=== PATIENT | female | born 1950 | race Caucasian/White ===

== ENCOUNTER 2023-04-19 09:24 | Outpatient (OUT) | payer MEDICARE, MEDICAID, SELFPAY ==
[2023-04-19 09:56] LABS: Basophils Absolute Auto 0.1 10^3/uL (0.0-0.1); Basophils Percent Auto 1.4 % (0.2-2.0); Eosinophils Absolute Auto 0.1 10^3/uL (0.0-0.7); Hematocrit 40.5 % (36.0-48.0); Hemoglobin 13.7 g/dL (12.0-16.0); Immature Granulocytes Abs Auto 0.01 10^3/uL (0.00-0.03); Immature Granulocytes Pct Auto 0.2 % (0.0-0.5); Lymphocytes Absolute Auto 1.4 10^3/uL (1.2-3.8); Lymphocytes Percent Auto 27.5 % (20.5-60.0); Mean Corpuscular HGB Conc 33.8 g/dL (29.9-35.2); Mean Corpuscular Hemoglobin 29.5 pg (26.7-34.0); Mean Corpuscular Volume 87.3 fL (81.0-99.0); Mean Platelet Volume 10.4 fL (9.5-13.5); Monocytes Absolute Auto 0.5 10^3/uL (0.3-0.8); Monocytes Percent Auto 10.4 % (1.7-12.0); Neutrophils Absolute Auto 2.9 10^3/uL (1.4-6.5); Neutrophils Percent Auto 58.5 % (43.0-75.0); Platelet Count 212 10^3/uL (150-450); Red Blood Count 4.64 10^6/uL (4.20-5.40); Red Cell Distribution Width 14.2 % (11.0-15.0)
[2023-04-19 10:44] LABS: Alanine Aminotransferase 23 U/L (14-59); Albumin Globulin Ratio 1.1; Albumin Level 3.7 g/dL (3.4-5.0); Alkaline Phosphatase 64 U/L (46-116); Anion Gap 10.3; Aspartate Amino Transferase 23 U/L (15-37); BUN Creatinine Ratio 18.1; Bilirubin Direct 0.2 mg/dL (0.0-0.2); Bilirubin Total 0.9 mg/dL (0.2-1.0); Calcium 9.4 mg/dL (8.5-10.1); Carbon Dioxide 32.1 mmol/L (21.0-32.0); Chloride 102 mmol/L (98-107); Chol HDL Ratio 2.2; Cholesterol 134 mg/dL (<=200); Estimated GFR (African America >60 (>=60); Estimated GFR (Non-African Ame >60 (>=60); Globulin 3.3 g/dL; Glucose 110 mg/dL (74-106); HDL Cholesterol 62 mg/dL (40-60); Potassium 3.4 mmol/L (3.5-5.1); Sodium 141 mmol/L (136-145); Triglycerides 43 mg/dL (<=150); VLDL CHOLESTEROL 8.6 mg/dL
== END 2023-04-19 09:25 ==
LOC: LAB 09:28
PROVIDERS: PCP Family Medicine; Visit Provider Family Medicine
DX: I10 Essential (primary) hypertension (principal); Z79.899 Other long term (current) drug therapy; E78.5 Hyperlipidemia, unspecified
CPT/HCPCS: 36415; 80048; 80061; 80076; 85025

== ENCOUNTER 2023-09-17 10:55 | Emergency (ER) | payer MEDICARE, MEDICAID, SELFPAY ==
[2023-09-17] VITALS (17 sets, daily range): BP systolic 134–176; BP diastolic 69–95; PULSE 80–106; RESP 16–25; TEMP 36.7; O2SAT 92–98; BMI 22.7
--- NOTE | 2023-09-17 11:11 | XR_ITS ---
The [address] [address] Patient Name: EDVIN PATEL MRN: [id number] date: 1950 Sex: F Assigned Patient Location: ER Current Patient Location: ER Accession/Order Number: [id number] Exam Date: 09/17/2023 11:25 Report Date: 09/17/2023 12:29 At the request of: CHRISTEN BARAJAS Procedure: XR chest 1V FRONTAL CHEST; 09/17/2023 11:25 AM EST Clinical History:SOB Comparison: 03/26/2019 . 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 Cardiac silhouette is not enlarged and is unchanged. Mediastinum is well-defined. Mild hiatal hernia is more evident today. Ericka are symmetric. Mild increased markings towards the bases appear chronic and are unchanged when allowing for differences in technique. No failure pattern. No pleural effusion. Mild apical scarring is again demonstrated. XR/XR chest 1V IMPRESSION: 1. No failure pattern or pleural effusion. Electronically authenticated by: ALEX MENG Date: 09/17/2023 12:29
--- NOTE | 2023-09-17 11:11 | ECG_ITS ---
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
--- NOTE | 2023-09-17 11:11 | XR_ITS ---
The [address] [address] Patient Name: EDVIN PATEL MRN: [id number] date: 1950 Sex: F Assigned Patient Location: ER Current Patient Location: ER Accession/Order Number: [id number] Exam Date: 09/17/2023 11:25 Report Date: 09/17/2023 12:17 At the request of: CHRISTEN BARAJAS Procedure: XR cervical spine 2-3V EXAM: XR cervical spine 2-3V HISTORY: Cervical pain. COMPARISON: None FINDINGS: The prevertebral soft tissues are unremarkable. There odontoid is intact. There are mild to moderate mid to lower level degenerative disc and endplate changes with disc space narrowing, endplate sclerosis and osteophyte formation. There is no evidence of an acute fracture or subluxation. There is straightening of the normal cervical lordosis. XR/XR cervical spine 2-3V IMPRESSION: Degenerative disc disease. Electronically authenticated by: ALEX GLASS Date: 09/17/2023 12:17
--- NOTE | 2023-09-17 11:11 | ED.GENADUL1 ---
HPI - General Adult General Chief complaint: Shortness of Breath/Dyspnea Stated complaint: SHORTNESS OF BREATH Time Seen by Provider: 09/17/23 11:03 Source: patient Mode of arrival: walk-in Limitations: no limitations History of Present Illness HPI narrative: 73-year-old female presents for neck pain and shortness of breath. The left side of her neck has been hurting for about two weeeks and right-sided started today. No injury or unusual activity. She has not gotten a new pillow or a new mattress. She also feels short of breath but doesn't have chest pain. No fever or cough. Related Data Home Medications Medication Instructions Recorded Confirmed albuterol sulfate 90 mcg/actuation 2 puff inhalation Q6H PRN 09/17/23 09/17/23 aerosol inhaler (Ventolin HFA) shortness of breath or wheezing aspirin 81 mg capsule 81 mg PO DAILY 09/17/23 09/17/23 famotidine 20 mg tablet 20 mg PO Q12H 09/17/23 09/17/23 fluticasone propionate 50 2 spray intranasal Q12H PRN 09/17/23 09/17/23 mcg/actuation nasal allergy symptoms spray,suspension hydrochlorothiazide 25 mg tablet 25 mg PO Q12H 09/17/23 09/17/23 hydrocodone 5 mg-acetaminophen 325 1 tab PO Q6H PRN pain 09/17/23 09/17/23 mg tablet ipratropium 0.5 mg-albuterol 3 mg 1.5 ml inhalation Q6H PRN 09/17/23 09/17/23 (2.5 mg base)/3 mL nebulization shortness of breath soln latanoprost 0.005 % eye drops drp ophthalmic (eye) 09/17/23 montelukast 10 mg tablet 10 mg PO QDAY 09/17/23 09/17/23 rivaroxaban 20 mg tablet (Xarelto) 20 mg PO Q24H 09/17/23 09/17/23 simvastatin 20 mg tablet 20 mg PO DAILY 09/17/23 09/17/23 Previous Rx's Medication Instructions Recorded methocarbamol 500 mg tablet 500 mg PO Q6H PRN pain #20 tabs 09/17/23 Allergies Allergy/AdvReac Type Severity Reaction Status Date / Time metronidazole [From Flagyl] AdvReac Intermediate Verified 09/17/23 11:01 penicillin G AdvReac Intermediate Verified 09/17/23 11:01 Sulfa (Sulfonamide AdvReac Intermediate Verified 09/17/23 11:01 Antibiotics) Review of Systems ROS Narrative A ten point review of systems is negative except as noted above. PFSH PFSH Social History Smoking status: Former smoker Exam Narrative Exam Narrative: Nurses note and vital signs reviewed and patient is not hypoxic. General: The patient appears well and in no apparent distress. Patient is resting comfortably on cart. Skin: Warm, dry, no pallor noted. There is no rash noted. Head: Normocephalic, atraumatic Eye: Normal conjunctiva, no drainage Ears, Nose, Mouth, and Throat: oral mucosa is moist. Nares patent. neck has no bruise rash or adenopathy. There is no palpable tenderness. Cardiovascular: Regular Rate and Rhythm Respiratory: Patient is in no distress, no accessory muscle use, lungs are clear to auscultation, no wheezing, rales or rhonchi; good air movement present. Back: non-tender GI: soft and nontender Musculoskeletal: The patient has no evidence of calf tenderness, no pitting edema, symmetrical pulses noted bilaterally Neurological: A&O, normal speech Psychiatric: Cooperative Constitutional Vital Signs, click to edit/add: Last Vital Signs Temp 98.0 F 09/17/23 11:01 Pulse 83 09/17/23 12:30 Resp 23 09/17/23 12:30 BP 134/71 09/17/23 12:01 Pulse Ox 94 L 09/17/23 12:30 O2 Del Method Room Air 09/17/23 11:08 Course Vital Signs Vital signs: Vital Signs Temperature 98.0 F 09/17/23 11:01 Pulse Rate 106 H 09/17/23 11:01 Respiratory Rate 18 09/17/23 11:01 Blood Pressure 153/94 H 09/17/23 11:01 Pulse Oximetry 94 L 09/17/23 11:01 Oxygen Delivery Method Room Air 09/17/23 11:01 Temperature 98.0 F 09/17/23 11:01 Pulse Rate 83 09/17/23 12:30 Respiratory Rate 23 09/17/23 12:30 Blood Pressure 134/71 09/17/23 12:01 Pulse Oximetry 94 L 09/17/23 12:30 Oxygen Delivery Method Room Air 09/17/23 11:08 Medical Decision Making MDM Narrative Medical decision making narrative: The patient's workup is essentially negative. She'll be treated symptomatically with Robaxin. At this point my clinical impressions that she is having muscle pain. The cervical spine x-ray findings were discussed with the patient and she'll follow-up with her physician if there is no improvement. Treatment diagnosis and follow-up were discussed with the patient. Differential Diagnosis Differential Diagnosis: myocardial infarction, pulmonary embolism, degenerative disc disease Lab Data Lab results reviewed: Yes I reviewed the patient's lab results Labs: Lab Results 09/17/23 Range/Units 11:15 WBC 12.3 H (4.0-11.0) 10^3/uL RBC 4.66 (4.20-5.40) 10^6/uL Hgb 14.2 (12.0-16.0) g/dL Hct 42.1 (36.0-48.0) % MCV 90.3 (81.0-99.0) fL MCH 30.5 (26.7-34.0) pg MCHC 33.7 (29.9-35.2) g/dL RDW 13.2 (11.0-15.0) % Plt Count 203 (150-450) 10^3/uL MPV 10.1 (9.5-13.5) fL Neut % (Auto) 81.3 H (43.0-75.0) % Lymph % (Auto) 11.6 L (20.5-60.0) % [place] % (Auto) 5.9 (1.7-12.0) % Eos % (Auto) 0.4 L (0.9-7.0) % Baso % (Auto) 0.6 (0.2-2.0) % Neut # (Auto) 10.0 H (1.4-6.5) 10^3/uL Lymph # (Auto) 1.4 (1.2-3.8) 10^3/uL [place] # (Auto) 0.7 (0.3-0.8) 10^3/uL Eos # (Auto) 0.1 (0.0-0.7) 10^3/uL Baso # (Auto) 0.1 (0.0-0.1) 10^3/uL Abs Immat Gran (auto) 0.03 (0.00-0.03) 10^3/uL Imm/Tot Granulo (auto) 0.2 (0.0-0.5) % D-Dimer <0.19 (<=0.59) mg/L FEU Sodium 138 (136-145) mmol/L Potassium 3.7 (3.5-5.1) mmol/L Chloride 101 (98-107) mmol/L Carbon Dioxide 29.0 (21.0-32.0) mmol/L Anion Gap 11.7 BUN 19.0 H (7.0-18.0) mg/dL Creatinine 0.92 (0.55-1.02) mg/dL Est GFR ( Amer) >60 (>=60) Est GFR (Non-Af Amer) 60 (>=60) BUN/Creatinine Ratio 20.7 Glucose 116 H (74-106) mg/dL Calcium 9.5 (8.5-10.1) mg/dL Troponin I High Sens 5.4 (4.0-51.3) pg/mL Imaging Data chest x-ray and cervical x-rays: Radiologist's impression: Procedure: XR cervical spine 2-3V EXAM: XR cervical spine 2-3V HISTORY: Cervical pain. COMPARISON: None FINDINGS: The prevertebral soft tissues are unremarkable. There odontoid is intact. There are mild to moderate mid to lower level degenerative disc and endplate changes with disc space narrowing, endplate sclerosis and osteophyte formation. There is no evidence of an acute fracture or subluxation. There is straightening of the normal cervical lordosis. IMPRESSION: Degenerative disc disease. Electronically authenticated by: ALEX GLASS Date: 09/17/2023 12:17 Procedure: XR chest 1V FRONTAL CHEST; 09/17/2023 11:25 AM EST Clinical History:SOB Comparison: 03/26/2019 . 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 Cardiac silhouette is not enlarged and is unchanged. Mediastinum is well-defined. Mild hiatal hernia is more evident today. Ericka are symmetric. Mild increased markings towards the bases appear chronic and are unchanged when allowing for differences in technique. No failure pattern. No pleural effusion. Mild apical scarring is again demonstrated. IMPRESSION: 1. No failure pattern or pleural effusion. Electronically authenticated by: ALEX MENG Date: 09/17/2023 12:29 ECG Data Attestation: I personally reviewed and interpreted this ECG as follows: (EKG on my interpretation shows normal sinus rhythm with no acute changes and a rate of 88.) Discharge Plan Discharge Chief Complaint: Shortness of Breath/Dyspnea Clinical Impression: Neck pain Patient Disposition: Home, Self-Care Time of Disposition Decision: 12:35 Condition: Good Mode of Transportation: Private Vehicle Prescriptions / Home Meds: New methocarbamol 500 mg tablet 500 mg PO Q6H PRN (Reason: pain) Qty: 20 0RF No Action albuterol sulfate [Ventolin HFA] 90 mcg/actuation HFA aerosol inhaler 2 puff INHALATION Q6H PRN (Reason: shortness of breath or wheezing) famotidine 20 mg tablet 20 mg PO Q12H fluticasone propionate 50 mcg/actuation spray,suspension 2 spray INTRANASAL Q12H PRN (Reason: allergy symptoms) hydrochlorothiazide 25 mg tablet 25 mg PO Q12H hydrocodone-acetaminophen 5-325 mg tablet 1 tab PO Q6H PRN (Reason: pain) ipratropium-albuterol 0.5 mg-3 mg(2.5 mg base)/3 mL solution for nebulization 1.5 ml INHALATION Q6H PRN (Reason: shortness of breath) latanoprost 0.005 % drops OPHTHALMIC (EYE) montelukast 10 mg tablet 10 mg PO QDAY Xarelto 20 mg tablet 20 mg PO Q24H simvastatin 20 mg tablet 20 mg PO DAILY aspirin 81 mg capsule 81 mg PO DAILY Instructions: Neck Pain (ED) Stand Alone Forms: Portal Instructions Referrals: Magnus Bunch MD [Primary Care Provider] - 1 week
[2023-09-17 11:22] LABS: Basophils Absolute Auto 0.1 10^3/uL (0.0-0.1); Basophils Percent Auto 0.6 % (0.2-2.0); Eosinophils Absolute Auto 0.1 10^3/uL (0.0-0.7); Eosinophils Percent Auto 0.4 % (0.9-7.0); Hematocrit 42.1 % (36.0-48.0); Hemoglobin 14.2 g/dL (12.0-16.0); Immature Granulocytes Abs Auto 0.03 10^3/uL (0.00-0.03); Immature Granulocytes Pct Auto 0.2 % (0.0-0.5); Lymphocytes Absolute Auto 1.4 10^3/uL (1.2-3.8); Lymphocytes Percent Auto 11.6 % (20.5-60.0); Mean Corpuscular HGB Conc 33.7 g/dL (29.9-35.2); Mean Corpuscular Hemoglobin 30.5 pg (26.7-34.0); Mean Corpuscular Volume 90.3 fL (81.0-99.0); Mean Platelet Volume 10.1 fL (9.5-13.5); Monocytes Absolute Auto 0.7 10^3/uL (0.3-0.8); Monocytes Percent Auto 5.9 % (1.7-12.0); Neutrophils Percent Auto 81.3 % (43.0-75.0); Platelet Count 203 10^3/uL (150-450); Red Blood Count 4.66 10^6/uL (4.20-5.40); Red Cell Distribution Width 13.2 % (11.0-15.0); White Blood Count 12.3 10^3/uL (4.0-11.0)
[2023-09-17 11:37] LABS: D Dimer <0.19 mg/L FEU (<=0.59)
[2023-09-17 11:40] LABS: Anion Gap 11.7; BUN Creatinine Ratio 20.7; Calcium 9.5 mg/dL (8.5-10.1); Chloride 101 mmol/L (98-107); Estimated GFR (African America >60 (>=60); Estimated GFR (Non-African Ame 60 (>=60); Glucose 116 mg/dL (74-106); Potassium 3.7 mmol/L (3.5-5.1); Sodium 138 mmol/L (136-145); Troponin I High Sensitivity 5.4 pg/mL (4.0-51.3)
== END 2023-09-17 12:44 | disposition home or self-care (01) ==
PROVIDERS: Emergency Provider Emergency Medicine; PCP Family Medicine
DX: M54.2 Cervicalgia (principal); R06.02 Shortness of breath; Z79.82 Long term (current) use of aspirin; Z79.899 Other long term (current) drug therapy; Z87.891 Personal history of nicotine dependence
CPT/HCPCS: 36415; 71045; 72040; 80048; 84484; 85025; 85378; 93005; 99285

== ENCOUNTER 2025-05-19 10:13 | Outpatient (OUT) | payer MEDICAID, MEDICARE, SELFPAY ==
--- OUTSIDE RECORDS SUMMARY | 2024-09-24 11:52 | XMS_ITS ---
Author Organization The [facility] in [place] Address [address] [place] [address] Care Team Providers Care Landscape Account Manager Name Role Phone Magnus Bunch MD Primary Care Provider Unavailab Kulwinder Ayon Unavailable [phone] REASON FOR VISIT appt cancel Encounters Encounter Location Date Provider Diagnosis Pulmonary [facility] [address] [place] [address] 09/24/2024 Kulwinder Willis Plan Of Treatment No Information Progress Notes * Vane PATEL LDOB: 8 (74 yo F)Acc No.[id number]:09/24/2024 Patient: Vane DE OLIVEIRA :1950 A ge:74 Y S ex:Female Address:[address] [place] [address], [address] * true * Date: Generated for Brandon mckeon/Lisa/eTransmitting on: 0 05/19/2025 10:16 AM EDT
--- OUTSIDE RECORDS SUMMARY | 2024-10-08 10:00 | XMS_ITS ---
Author Organization The [facility] in [place] Address [address] [place] [address] Care Team Providers Care Milk Treater Name Role Phone Magnus Bunch MD Primary Care Provider Unavailab Kulwinder Ayon Unavailable [phone] REASON FOR VISIT 1y COPD Encounters Encounter Location Date Provider Diagnosis Pulmonary Medicine [place] [address] [place] [address] 10/08/2024 Kulwinder Willis Plan Of Treatment No Information Progress Notes * Vane PATEL LDOB: 8 (74 yo F)Acc No.[id number]:10/08/2024 UNLOCKED PROGRESS NOTE Follow Up Patient: Vane DE OLIVEIRA Provider: Amber Willis DO :1950 A ge:74 Y S ex:Female Date:10/08/2024 Address:[address] [place], [place] [id number] Pcp:Magnus Bunch MD Subjective: * Chief Complaints: * 1 . 1y COPD. * Medical History: Objective: * Vitals: Assessment: Plan: * Treatment: * * Electronic signature of Nancy Willis DO on 05/19/2025 at 09:30 AM EDT Sign off status: Pending Visit Status: C ANC (Cancelled) * Provider: Amber Willis DO Date: 1 12/09/2023 Generated for Printi ng/Faxing/eTransmitting on: 0 05/19/2025 09:30 AM EDT
--- OUTSIDE RECORDS SUMMARY | 2025-05-19 10:17 | XMS_ITS | Clinical Summary ---
Author Organization [employer] tem Address [id number] [address] [place] [address] Care Team Providers Care Mattress Inspector Name Role Phone Magnus Bunch MD Primary Care Provider [phone] Allergies Active Allergy Reactions Criticality Noted Date Comments Ciprofloxacin 09/20/2017 Sob Metronidazole 09/20/2017 Sob Penicillins Hives 09/20/2017 Ondansetron Vomiting 09/23/2017 Medications hydroCHLOROthi azide (HYDRODIURIL) 25 mg tablet Take 1 tablet (25 mg total) by mouth daily. Active simvastatin (ZOCOR) 20 mg tablet Take 1 tablet (20 mg total) by mouth nightly. Active albuterol (PROVENTIL HFA;VENTOLIN HFA) 90 mcg/actuation inhaler Inhale 2 puffs every 4 (four) hours as needed for wheezing. Acti ve fluticasone-um eclidin-vilant er (TRELEGY ELLIPTA) 100-62.5-25 mcg blister with device Inhale 1 puff in the morning. Active aspirin 81 mg Take 1 tablet (81 mg total) by mouth in the morning. Active montelukast (SINGULAIR) 10 mg tablet Take 1 tablet (10 mg total) by mouth nightly. Active omeprazole (PriLOSEC) 40 mg capsuleIndicat ions:gastroeso phageal reflux disease Take 1 capsule (40 mg total) by mouth in the morning. Indications: gastroesophageal reflux disease. Active fluticasone propionate (FLONASE) 50 mcg/actuation nasal spray Administer 1 spray into each nostril daily as needed for rhinitis or allergies. Active rivaroxaban (XARELTO) 20 mg tablet tablet Take 1 tablet (20 mg total) by mouth daily with dinner. To begin following the Xarelto 15 mg tablet b.i.d. for 21 days. Expected the 20 mg daily dose to be lifelong. 30 tablet 03/21/20 20 Active Additional Information Patient taking differently:20 mg oral Daily with dinner,(No instructions reported), Reported on 03/05/2024 ipratropium-al buteroL (DUONEB) 0.5 mg-3 mg(2.5 mg base)/3 mL nebulizer Inhale 3 mL by nebulization as needed for wheezing. Acti ve latanoprost (XALATAN) 0.005 % ophthalmic solution Administer 1 drop to both eyes nightly. Active HYDROcodone-ac etaminophen (NORCO) 5-325 mg per tablet Take 1 tablet by mouth every 6 (six) hours as needed for pain. Active Active Problems Problem Noted Date Diagnosed Date Acute deep vein thrombosis ( DVT) of distal vein of right lower extremity 10/09/2017 Bilateral carotid artery stenosis 10/09/2017 Acute pulmonary embolism 09/22/2017 Pulmonary embolism with acute cor pulmonale 08/31 Pulmonary embolus 09/20/2017 Acute respiratory failure with hypoxia 7 Panlobular emphysema 09/20/2017 Immunizations Immunization Administration Dates Next Due Tdap 03/11/2018 Family History Medical History Relation Name Comments Heart disease Mother Hyperlipidemia Mother Relation Name Status Comments Father Mother Social History Tobacco Use Types Packs/Day Years Used Date Smoking Tobacco: Former Cigarettes 1 40 1 972 - 2012 Smokeless Tobacco: Never Tobacco Cessation:Counseling Given: Not Answered Alcohol Use Standard Drinks/Week Comments Yes 1 (1 standard drink = 0.6 oz pur e alcohol) occasional Childcare Answer Date Recorded Childcare Unknown 04/10/2019 Employment Answer Date Recorded Employment Unknown 04/10/2019 Hunger Screening Answer Date Recorded Within the past 12 months we worried whether our food would run out before we got money to buy more. Never True 03/23/2024 Within the past 12 months th e food we bought just didn't last and we didn't have money to get more. Never True 03/23/2024 Purpose - Life Answer Date Recorded Purpose and direction in life Unknown Comments No Sex and Gender Information Value Date Recorded Sex Assigned at Female 03/31/2024 9:51 AM EDT Legal Sex Female 11:26 AM EDT Gender Identity Female 03/31/2024 9:51 AM EDT Sexual Orientation Straight 03/31/2024 9: 51 AM EDT Last Filed Vital Signs Vital Sign Reading Time Taken Comments Blood Pressure 127/64 04/11/2024 12:23 PM EDT Pulse 76 04/11/2024 12:23 PM EDT Temperature 36.7 C (98 F) 04/11/2024 10:10 AM EDT Respiratory Rate 26 04/11/2024 12:23 PM EDT Oxygen Saturation 93% 04/11/2024 12:23 PM EDT Inhaled Oxygen Concentration - - Weight 64 kg (141 lb 1.5 oz) 03/26/2024 10:18 AM EDT Height 154 cm (5' 0.63 ) 03/26/2024 10:18 AM EDT Body Mass Index 26.99 03/26/2024 10:18 AM EDT Plan of Treatment Health Maintenance Due Date Last Done Comments Depression Screening 1960 Fall Risk Screening 2013 COVID-19 Vaccine (2023-2 5 season) 2024 08/25/2021, 01/25/2021, 12/25/2020 Tobacco Screening 04/11/2025 04/11/2024 Influenza Vaccine 06/30/2025 06/30/2023, , 07/23/2021, Additional history exists DTaP,Tdap and Td Vaccines (2 - Td or Tdap) 03/11/2028 03/11/2018 Zoster (Shingles) Vaccine Completed 11/10/2020, 02/2020 Goals Goal Patient Goal Type Associated Problems Recent Progress Patient-Stated? Author discharge home General Yes Seda Kevin, RN Note: Evaluation of progress towards goal: Pt plans to d/c home with [facility] for COPD telehealth Medical Devices Implanted Type Area Lieutenant/Deputy Device Identifier Shelf Expiration Date Model / Serial / Lot Lens Iol [id number].210 [facility] [place] [facility] [id number] - [id number] Implanted:Qty: 1 on 03/26/2024 by Althea Rapp MD at [facility] Lens [employer] 09/30/2027 SY60WF.210 / [id number] / N/A Lens Iol [id number].210 Tessa [id number] - [id number] Implanted:Qty: 1 on 04/11/2024 by Althea Rapp MD at [facility] Lens Right: Eye [employer] 10/29/2027 SY60WF.210 / [id number] / NA Insurance MEDICAID [place] MEDICARE Advance Directives * Full Code (Latest Code Status on File) Date Activated Date Inactivated Comments 02/29/2020 8:10 AM 03/01/2020 1:39 PM * Full Code Date Activated Date Inactivated Comments 09/22/2017 7:41 PM 09/27/2017 7:02 PM * Full Code Date Activated Date Inactivated Comments 09/20/2017 5:31 PM 09/22/2017 7:41 PM Care Teams Mattress Inspector Relationship Specialty Start Date End Date Magnus Bunch MD PCP - General 03/13/17
--- NOTE | 2025-05-19 10:20 | XR_ITS ---
The [address] [address] Patient Name: EDVIN PATEL MRN: [id number] date: 1950 Sex: F Assigned Patient Location: [facility] Current Patient Location: [facility] Accession/Order Number: [id number] Exam Date: 05/19/2025 10:58 Report Date: 05/19/2025 10:59 At the request of: THERESE VORA MD Procedure: XR knee LT 2V LEFT KNEE - 2 views CLINICAL HISTORY: Chronic Left Knee Pain COMPARISON: None FINDINGS: No knee joint effusion. No acute bony process. Joint spaces appear maintained. XR/XR knee LT 2V IMPRESSION: NO ACUTE BONY PROCESS. Impression dictated by: Akira Yates Jr., DBruceOBruce 05/19/2025 10:59 AM Dictation Location: [place] [address] Electronically authenticated by: [id number] Y Date: 05/19/2025 10:59
--- NOTE | 2025-05-19 10:20 | XR_ITS ---
The [place] [id number] Patient Name: EDVIN PATEL MRN: [id number] date: 1950 Sex: F Assigned Patient Location: [facility] Current Patient Location: [facility] Accession/Order Number: [id number] Exam Date: 05/19/2025 10:59 Report Date: 05/19/2025 11:01 At the request of: THERESE VORA MD Procedure: XR shoulder RT min 2V RIGHT SHOULDER - - 3 views CLINICAL HISTORY: Chronic Right Shoulder Pain COMPARISON: None FINDINGS: Mild degenerative changes involving the AC and glenohumeral joints with a calcified loose body seen within the glenohumeral joint space. No acute bony process is seen. XR/XR shoulder RT min 2V IMPRESSION: MILD DEGENERATIVE CHANGES INVOLVING THE RIGHT SHOULDER WITHOUT ACUTE BONY PROCESS. Impression dictated by: Akira Yates Jr., D.O. 05/19/2025 11:01 AM Dictation Location: [place] [address] Electronically authenticated by: [id number] Y Date: 05/19/2025 11:01
--- OUTSIDE RECORDS SUMMARY | 2025-05-19 10:37 | XMS_ITS | CCD ---
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Biology Name Role Phone DIONY, DR MAGNUS Gagnon Attending Unavailable NADERER, DR MAGNUS Gagnon Consulting Unavailable NADERER, DR MAGNUS Gagnon Primary Care Unavailable NADERECedric, DR MAGNUS Gagnon Admitting Unavailable SAMSA ., KATTY Consulting Unavailable NADERER, DR MAGNUS Gagnon Primary Care Unavailable ZIEBER, DR SHARMILA Steele Consulting Unavailable SAMSA ., KATTY Admitting Unavailable SAMSA ., KATTY Attending Unavailable SAMSA ., KATTY Consulting Unavailable SAMSA ., KATTY Consulting Unavailable NADERER, DR MAGNUS Gagnon Primary Care Unavailable SAMSA ., KATTY Admitting Unavailable SAMSA ., KATTY Attending Unavailable DIAB ., AKUA Admitting Unavailable NEFCYVINCENZO Consulting Unavailable DIAB ., AUKA Attending Unavailable NADRUSTAM, DR MAGNUS Gagnon Primary Care Unavailable DIAB ., AKUA Consulting Unavailable MARIE CHAVIRA Referring Unavailable NADERER, MAGNUS Primary Care Unavailable PEMA ULRICH Attending Unavailable PEMA ULRICH Referring Unavailable ZACEREMAGNUS Steele Primary Care Unavailable MAGNUS VORA Primary Care Unavailable GYPSY PRICE Attending Unavailable GYPSY PRICE Referring Unavailable ZACERERMAGNUS Primary Care Unavailable MARIE CHAVIRA Admitting Unavailable MARIE CHAVIRA Attending Unavailable MARIE CHAVIRA Referring Unavailable NADERER, MAGNUS Primary Care Unavailable PEMA ULRICH Attending Unavailable MAGNUS VORA Primary Care Unavailable MARIE CHAVIRA Admitting Unavailable MARIE CHAVIRA Attending Unavailable MARIE CHAVIRA Referring Unavailable NADERER, MAGNUS Primary Care Unavailable MARIBEL CHURCHILL Attending Unavailable MAGNUS VORA Primary Care Unavailable MAGNUS VORA Referring Unavailable ZACERER, MAGNUS Primary Care Unavailable MAGNUS VORA Referring Unavailable MAGNUS VORA Primary Care Unavailable Magnus Vora MD Primary Care Provider Magnus Vora MD Unavailable Chelly Clements MA Unavailable Unavailable MAGNUS VORA Attending Unavailable MAGNUS VORA Attending Unavailable MAGNUS VORA Attending Unavailable MAGNUS VORA Referring Unavailable SUSIE EWING Attending Unavailable MAGNUS VORA Referring Unavailable MAGNUS VORA Attending Unavailable Allergies Allergy Classification Reported Allergen(s) Allergy Type Date of Onset Reaction(s) Facility (1 source) Ciprofloxacin Drug Allergy 4 [facility] Repository (1 source) metroNIDAZOLE Drug Allergy 4 [facility] Repository (2 sources) Penicillins; Translations: [PENICILLINS] Drug allergy (disorder) 4 [facility] Repository (18 sources) Ciprofloxacin; Translations: [CIPROFLOXACIN] Drug Allergy 7 Shortness of breath [facility] Repository (18 sources) metroNIDAZOLE; Translations: [METRONIDAZOLE] Drug Allergy 7 Rash [facility] Repository (13 sources) Ondansetron; Translations: [ONDANSETRON] Drug Allergy 7 GI intolerance [facility] Repository (17 sources) Penicillin G sodium Allergy to substance 3 Hives [facility] Healthcare (12 sources) Penicillins Drug Allergy 7 [facility] Medications Current Medications Medication Drug Class(es) Dates Sig (Normalized) Sig (Original) acetaminophen 325 mg / HYDROcodone bitartrate 5 mg oral tablet (13 sources) Opioid Agonist Start: 05-19-2025 End: 06-03-2025 take 1 tablet by mouth four times daily as needed for pain HYDROcodone-acetamin ophen ([place]) 5-325 MG tablet Indications: Degeneration of intervertebral disc of lumbar region with discogenic back pain Take 1 tablet by mouth 4 (four) times a day as needed for severe pain or moderate pain for up to 15 days 60 tablet 05/19/2025 06/03/2025 Active Start: 10-16-2024 End: 10-31-2024 take 1 tablet by mouth four times daily as needed for pain HYDROcodone-acetaminophen ([place]) 5-325 MG tablet Indications: Degeneration of intervertebral disc of lumbar region with discogenic back pain Take 1 tablet by mouth 4 (four) times a day as needed for severe pain or moderate pain for up to 15 days 60 tablet 10/16/2024 10/31/2024 Active End: 10-16-2024 take 1 tablet by mouth every six hours as needed HYDROcodone-acetaminophen ([place]) 5-325 MG tablet Take 1 tablet by mouth every 6 (six) hours if needed 10/16/2024 Discontinued (Reorder) [id number] actuat albuterol 0.09 mg/actuat metered dose inhaler (18 sources) beta2-Adrenergic Agonist Start: 12-13-2024 take 2 puff(s) by inhalation every four hours albuterol HFA (Ventolin HFA) 90 mcg/act inhaler Indications: Chronic obstructive pulmonary disease, unspecified COPD type (HCC) Inhale 2 puffs every 4 (four) hours if needed for shortness of breath 18 g 3 12/13/2024 Active End: 12-13-2024 take 2 puff(s) by inhalation every four hours Ventolin HFA 108 (90 Base) MCG/ACT inhaler Inhale 2 puffs every 4 (four) hours if needed 12/13/2024 Discontinued (Reorder) albuterol 0.833 mg/ml / ipratropium bromide 0.167 mg/ml inhalation solution (17 sources) Anticholinergic, beta2-Adrenergic Agonist Start: 10-10-2023 ipratropium-albuterol (Duo-Neb) 0.5-2.5 mg/3 mL nebulizer solution Take 3 mL by nebulization in the morning and 3 mL at noon and 3 mL in the evening and 3 mL before bedtime. 10/10/2023 Active aspirin 81 mg delayed release oral tablet (5 sources) Platelet Aggregation Inhibitor, Nonsteroidal Anti-inflammatory Drug take 1 tablet by mouth once daily aspirin 81 MG EC tablet Take 81 mg by mouth Daily Active azithromycin 250 mg oral tablet (9 sources) Macrolide Antimicrobial Start: 01-13-2025 azithromycin (Zithromax) 250 MG tablet Indications: Chronic obstructive pulmonary disease, unspecified COPD type (HCC) Take 2 by mouth today then 1 daily for 4 days 6 tablet 01/13/2025 Active Start: 10-11-2024 End: 10-16-2024 azithromycin (Zithromax) 250 MG tablet Indications: Chronic obstructive pulmonary disease, unspecified COPD type (CMS/HCC) Take 2 by mouth today then 1 daily for 4 days 6 tablet 10/11/2024 10/16/2024 Discontinued fexofenadine hydrochloride 180 mg oral tablet (3 sources) Histamine-1 Receptor Antagonist Start: 02-19-2025 take 1 tablet by mouth once daily as needed fexofenadine (Opal) 180 MG tablet Indications: Seasonal allergic rhinitis due to pollen Take 1 tablet (180 mg) by mouth Daily as needed (allergies) 30 tablet 5 02/19/2025 Active fluticasone propionate 0.05 mg/actuat metered dose nasal spray (17 sources) Corticosteroid Start: 07-18-2023 take 2 spray(s) nasal route in the morning fluticasone (Flonase) 50 MCG/ACT nasal spray Administer 2 sprays into each nostril in the morning. 07/18/2023 Active 30 actuat fluticasone furoate 0.1 mg/actuat / umeclidinium 0.0625 mg/actuat / vilanterol 0.025 mg/actuat dry powder inhaler (20 sources) Anticholinergic, Corticosteroid, beta2-Adrenergic Agonist Start: 05-19-2025 take 1 dose by inhalation once daily Fluticasone-Umecl idin-Vilant (Trelegy Ellipta) 100-62.5-25 MCG/ACT aerosol powder Indications: Chronic obstructive pulmonary disease, unspecified COPD type (HCC) Inhale 1 Dose Daily 84 each 3 05/19/2025 Active Start: 05-19-2025 take 1 dose by inhal ation once daily Gvtsikksgxo-Ygxsybzgj-Gougwn (Trelegy Ellipta) 100-62.5-25 MCG/ACT aerosol powder Indications: Chronic obstructive pulmonary disease, unspecified COPD type (HCC) Inhale 1 Dose Daily 84 each 3 05/19/2025 Active Start: 07-18-2024 End: 05-19-2025 take 1 dose by inhalation once daily Metqixjdsiu-Owejzfabt-Uwwefl (Trelegy Ellipta) 100-62.5-25 MCG/ACT aerosol powder Indications: Chronic obstructive pulmonary disease, unspecified COPD type (HCC) Inhale 1 Dose Daily 84 each 3 10/16/2024 05/19/2025 Discontinued (Reorder) Start: 10-08-2023 End: 07-18-2024 take 1 dose by inhalation in the morning Afshin Vivar 100-62.5-25 MCG/ACT aerosol powder Inhale 1 Dose in the morning. 10/08/2023 07/18/2024 Discontinued (Reorder) hydroCHLOROthiazide 25 mg oral tablet (17 sources) Thiazide Diuretic Start: 04-08-2024 take 1 tablet by mouth once daily hydroCHLOROthiazide (HYDRODiuril) 25 MG tablet Indications: Essential hypertension, benign TAKE 1 TABLET BY MOUTH EVERY DAY 90 tablet 3 01/13/2025 Active latanoprost 0.05 mg/ml ophthalmic solution (17 sources) Prostaglandin Analog Start: 10-09-2023 take 1 drop(s) into the eye(s) at bedtime latanoprost (Xalatan) 0.005 % ophthalmic solution Administer 1 drop into both eyes at bedtime 10/09/2023 Active lidocaine 0.05 mg/mg medicated patch (2 sources) Antiarrhythmic, Amide Local Anesthetic Start: 05-19-2025 apply 1 dose transdermal route every twelve hours lidocaine (Lidoderm) 5 % patch Indications: Degeneration of intervertebral disc of lumbar region with discogenic back pain Apply 1 patch over 12 hours topically Daily Apply to painful area 12 hours per day, remove for 12 hours. 30 patch 3 05/19/2025 Active Start: 05-19-2025 apply 1 dose transde rmal route every twelve hours lidocaine (Lidoderm) 5 % patch Indications: Degeneration of intervertebral disc of lumbar region with discogenic back pain Apply 1 patch over 12 hours topically Daily Apply to painful area 12 hours per day, remove for 12 hours. 30 patch 3 05/19/2025 Active montelukast 10 mg oral tablet (19 sources) Leukotriene Receptor Antagonist Start: 10-08-2023 End: 10-16-2024 take 1 tablet by mouth at bedtime montelukast (Singulair) 10 MG tablet Indications: Seasonal allergic rhinitis due to pollen Take 1 tablet (10 mg) by mouth at bedtime 90 tablet 3 10/16/2024 Active omeprazole 40 mg delayed release oral capsule (19 sources) Proton Pump Inhibitor Start: 05-19-2025 take 1 capsule by mouth in the morning omeprazole (PriLOSEC) [address] capsule Indications: GERD without esophagitis Take 1 capsule (40 mg) by mouth in the morning and 1 capsule (40 mg) before bedtime. 180 capsule 5 05/19/2025 Active Start: 05-19-2025 take 1 capsule by mo uth in the morning omeprazole (PriLOSEC) [address] capsule Indications: GERD without esophagitis Take 1 capsule (40 mg) by mouth in the morning and 1 capsule (40 mg) before bedtime. 180 capsule 5 05/19/2025 Active Start: 04-08-2024 End: 05-19-2025 take 1 capsule by mouth twice daily omeprazole (PriLOSEC) [address] capsule Indications: GERD without esophagitis TAKE 1 CAPSULE BY MOUTH TWICE A DAY 180 capsule 5 04/08/2024 05/19/2025 Discontinued (Reorder) ondansetron 4 mg disintegrating oral tablet (17 sources) Serotonin-3 Receptor Antagonist Start: 03-27-2023 take 1 tablet by mouth every six hours as needed ondansetron ODT (Zofran-ODT) 4 MG disintegrating tablet Take 1 tablet by mouth every 6 (six) hours if needed 03/27/2023 Active predniSONE 50 mg oral tablet (8 sources) Start: 05-19-2025 End: 05-25-2025 take 1 tablet by mouth once daily predniSONE (Deltasone) 50 MG tablet Indications: Chronic right shoulder pain Take 1 tablet (50 mg) by mouth Daily for 6 days 6 tablet 05/19/2025 05/25/2025 Active Start: 01-13-2025 End: 01-19-2025 take 1 tablet by mouth once daily predniSONE (Deltasone) 50 MG tablet Indications: DDD (degenerative disc disease), cervical Take 1 tablet (50 mg) by mouth Daily for 6 days 6 tablet 01/13/2025 01/19/2025 Active Start: 10-11-2024 End: 10-22-2024 take 4 tablets by mouth once daily, then take 2 tablets by mouth once daily, then take 1 tablet by mouth once daily predniSONE (Deltasone) 10 MG tablet Indications: Chronic obstructive pulmonary disease, unspecified COPD type (CMS/HCC) Take 4 tablets (40 mg) by mouth Daily for 4 days, THEN 2 tablets (20 mg) Daily for 4 days, THEN 1 tablet (10 mg) Daily for 4 days. 28 tablet 10/11/2024 10/16/2024 Discontinued rivaroxaban 20 mg oral tablet (19 sources) Factor Xa Inhibitor Start: 05-19-2025 take 1 tablet by mouth once daily rivaroxaban (Xarelto) 20 MG tablet Indications: Other pulmonary embolism without acute cor pulmonale (HCC) Take 1 tablet (20 mg) by mouth Daily 90 tablet 3 05/19/2025 Active Start: 05-19-2025 take 1 tablet by chris th once daily rivaroxaban (Xarelto) 20 MG tablet Indications: Other pulmonary embolism without acute cor pulmonale (HCC) Take 1 tablet (20 mg) by mouth Daily 90 tablet 3 05/19/2025 Active Start: 04-08-2024 End: 05-19-2025 take 1 tablet by mouth once daily Xarelto 20 MG tablet Indications: Other pulmonary embolism without acute cor pulmonale (HCC) TAKE 1 TABLET BY MOUTH EVERY DAY 90 tablet 4 04/08/2024 05/19/2025 Discontinued (Reorder) simvastatin 20 mg oral tablet (20 sources) HMG-CoA Reductase Inhibitor Start: 05-19-2025 take 1 tablet by mouth at bedtime simvastatin (Zocor) 20 MG tablet Indications: Dyslipidemia Take 1 tablet (20 mg) by mouth at bedtime 90 tablet 3 05/19/2025 Active Start: 05-19-2025 take 1 tablet by chris th at bedtime simvastatin (Zocor) 20 MG tablet Indications: Dyslipidemia Take 1 tablet (20 mg) by mouth at bedtime 90 tablet 3 05/19/2025 Active Start: 07-18-2024 End: 05-19-2025 take 1 tablet by mouth at bedtime simvastatin (Zocor) 20 MG tablet Indications: Dyslipidemia Take 1 tablet (20 mg) by mouth at bedtime 90 tablet 3 07/18/2024 05/19/2025 Discontinued (Reorder) Problems Active Problems Problem Classification Problem Date Documented Da te Episodic/Chronic Chronic obstructive pulmonary disease and bronchiectasis (20 sources) Chronic obstructive pulmonary disease, unspecified; Translations: [Centrilobular emphysema] Onset: 3 Chronic Disorders of lipid metabolism (20 sources) Hyperlipidemia, unspecified; Translations: [Dyslipidemia] Onset: 3 10-18-2023 Chronic E Codes: Fall (1 source) Fall Onset: 4 Esophageal disorders (20 sources) Gastroesophageal reflux disease without esophagitis; Translations: [Gastro-esophageal reflux disease without esophagitis] Onset: 3 10-18-2023 Chronic Essential hypertension (20 sources) Essential (primary) hypertension; Translations: [Benign essential hypertension] Onset: 3 10-18-2023 Chronic Fluid and electrolyte disorders (1 source) Hypokalemia; Translations: [HYPOKALEMIA] Onset: 3 Episodic Gastritis and duodenitis (1 source) Gastritis, unspecified, without bleeding; Translations: [GASTRITIS UNS WITHOUT BLEEDING] Onset: 3 Episodic Noninfectious gastroenteritis (1 source) Noninfective gastroenteritis and colitis, unspecified; Translations: [NONINFECTIVE GE AND COLITIS UNS] Onset: 3 Episodic Occlusion or stenosis of precerebral arteries (1 source) Occlusion and stenosis of bilateral carotid arteries; Translations: [Occlusion and stenosis of bilateral carotid arteries] Onset: 7 Chronic Osteoporosis (20 sources) Age-related osteoporosis without current pathological fracture; Translations: [Senile osteoporosis] Onset: 3 Chronic Other aftercare (2 sources) Other terminal block assembler (current) drug therapy; Translations: [OTH LONGTERM CURRENT DRUG THERAPY] Onset: 3 Episodic Other aftercare (1 source) terminal manager (current) use of aspirin; Translations: [AVIATION TECHNICAL SYSTEMS SPECIALIST CURRENT USE OF ASPIRIN] Onset: 3 Episodic Other aftercare (1 source) terminal manager (current) use of anticoagulants; Translations: [AVIATION TECHNICAL SYSTEMS SPECIALIST CURRNT USE ANTICOAGULANTS] Onset: 3 Episodic Other connective tissue disease (4 sources) Synovial cyst of left popliteal space; Translations: [Synovial cyst of popliteal space [Wright], left knee] Onset: 5 05-19-2025 Episodic Other gastrointestinal disorders (3 sources) Diarrhea, unspecified; Translations: [DIARRHEA UNSPECIFIED] Onset: 3 Episodic Other lower respiratory disease (17 sources) Fibrosis of lung; Translations: [Pulmonary fibrosis, unspecified] Onset: 3 10-18-2023 Chronic Other non-traumatic joint disorders (4 sources) Chronic pain of right upper limb; Translations: [Pain in right shoulder] Onset: 5 05-19-2025 Episodic Other non-traumatic joint disorders (4 sources) Pain in left knee; Translations: [Pain in joint, lower leg] Onset: 5 05-19-2025 Episodic Other upper respiratory disease (19 sources) Allergic rhinitis due to pollen; Translations: [Allergic rhinitis due to pollen] Onset: 3 10-18-2023 Chronic Peripheral and visceral atherosclerosis (17 sources) Intermittent claudication; Translations: [Peripheral vascular disease, unspecified] Onset: 3 10-18-2023 Chronic Pulmonary heart disease (19 sources) Pulmonary arterial hypertension; Translations: [Secondary pulmonary arterial hypertension] Onset: 3 10-18-2023 Chronic Pulmonary heart disease (19 sources) H/O: pulmonary embolus; Translations: [Personal history of pulmonary embolism] Onset: 3 10-18-2023 Episodic Spondylosis; intervertebral disc disorders; other back problems (20 sources) Degeneration of lumbar intervertebral disc; Translations: [Disc degeneration, lumbar] Onset: 3 10-18-2023 Chronic Superficial injury; contusion (2 sources) Contusion of left knee, initial encounter; Translations: [Contusion of left wrist, initial encounter] Onset: 4 Episodic Unclassified (1 source) Fall, Knee Pain Onset: 4 Past or Other Problems Problem Classification Problem Date Documented Da te Episodic/Chronic Diabetes mellitus without complication (18 sources) Prediabetes; Translations: [Prediabetes] Onset: 04-24-2024 04-24-2024 Episodic Mood disorders (5 sources) Mood disorders Onset: 01-13-2025 01-13-2025 Other aftercare (17 sources) Long-term current use of drug therapy; Translations: [Other jail (current) drug therapy] Onset: 04-24-2024 04-24-2024 Episodic Pneumonia (except that caused by tuberculosis or sexually transmitted disease) (4 sources) Pneumonia, unspecified organism; Translations: [PNEUMONIA UNSPECIFIED ORGANISM] Onset: 11-03-2022 Episodic Unclassified (7 sources) Onset: 11-19-2024 11-19-2024 Results Test Name Value Interpretation Reference Range Facil ity DEXA SCAN CENTRAL SKELETALon 06-03-2024 DEXA SCAN CENTRAL SKELETAL DEXA SCAN CENTRAL SKELETAL CLINICAL INFORMATION: Age-related osteoporosis without current pathological fracture. , Post menopausal, TECHNIQUE: Dual X-ray Absorptiometry (DXA) was performed. COMPARISON: No relevant prior studies available. FINDINGS: LUMBAR SPINE (L1-L4): BMD is 1.019 gm/cm2. T-score is -1.4. LEFT FEMORAL NECK: BMD is 0.728 gm/cm2. T-score is -2.2. LEFT TOTAL FEMUR: BMD is 0.71 gm/cm2. T-score is -2.2. RIGHT FEMORAL NECK: BMD is 0.703 gm/cm2. T-score is -2.4. RIGHT TOTAL FEMUR: BMD is 0.725 gm/cm2. T-score is -2.2. The estimated 10-year probability for a major osteoporotic fracture (utilizing FRAX) is 42.3% and for a hip fracture is 27.8%. IMPRESSION: The exam is considered to be osteopenic by the National Osteoporosis Foundation guidelines. Recommend consideration for initiation of therapy. WHO CLASSIFICATION: Normal: T-score -1.0 or above Osteopenia: T-score -1.1 to < 2.5 Osteoporosis: T-score -2.5 or lower Secondary causes of bone loss should be evaluated if clinically indicated since the etiology of low BMD cannot be determined by BMD measurement alone. The current National Osteoporosis Foundation guide recommends treating patients with FRAX ten year risk scores of greater than or equal to 3% for hip fracture or greater than or equal to 20% for major osteoporotic fracture, to reduce their fracture risk. Finalized by Ko Rosales MD on 06/03/2024 9:30 AM Normal [facility] BASIC METABOLIC PANLon 05-27 Anion gap [Moles/Vol] 7 mmol/L Normal 5-15 [facility] Comment on above: Performed By: #### C SAMARA, HA1C, BMP, 00553-5, LIVR #### [facility] ([id number]) [address], [address] [place] [address] Calcium [Mass/Vol] 9.5 mg/dL Normal 8.5-10.5 [facility] Comment on above: Performed By: #### C BCA, HA1C, BMP, 63379-7, LIVR #### [facility] ([id number]) [address], [address] [place] [address] Chloride [Moles/Vol] 103 mmol/L Normal 98-109 [facility] Comment on above: Performed By: #### C BCA, HA1C, BMP, 63907-7, LIVR #### [facility] ([id number]) [address], [address] [place] [address] CO2 [Moles/Vol] 33 mmol/L High 22-32 [facility] Comment on above: Performed By: #### C BCA, HA1C, BMP, 59277-3, LIVR #### [facility] ([id number]) [address], [address] [place] [address] Creatinine [Mass/Vol] 0.82 mg/dL Normal 0.40-1.00 [facility] Comment on above: Result Comment: METH OD TRACEABLE TO IDMS STANDARD Performed By: #### C BCA, HA1C, BMP, 90046-4, LIVR #### [facility] ([id number]) [address], [address] [place] [address] GFR/1.73 sq M.predicted among non-blacks MDRD (S/P/Bld) [Vol rate/Area] 75 mL/min/{1.73_m2} Normal >59 [facility] Comment on above: Result Comment: Reported eGFR is based on the CKD-EPI 2020 equation that does not use a race coefficient. Performed By: #### C BCA, HA1C, BMP, 76772-9, LIVR #### [facility] ([id number]) [address], [address] [place] [address] Glucose [Mass/Vol] 96 mg/dL Normal 65-99 [facility] Comment on above: Performed By: #### C BCA, HA1C, BMP, 55905-4, LIVR #### [facility] ([id number]) [address], [address] [place] [address] Potassium [Moles/Vol] 3.9 mmol/L Normal 3.5-5.0 [facility] Comment on above: Performed By: #### C BCA, HA1C, BMP, 24815-7, LIVR #### [facility] ([id number]) [address], [address] [place] [address] Sodium [Moles/Vol] 143 mmol/L Normal 134-146 [facility] Comment on above: Performed By: #### C BCA, HA1C, BMP, 34258-9, LIVR #### [facility] ([id number]) [address], [facility] [address] [place] [address] Urea nitrogen [Mass/Vol] 17 mg/dL Normal 5-27 [facility] Comment on above: Performed By: #### C BCA, HA1C, BMP, 87729-5, LIVR #### [facility] ([id number]) [address], [address] [place] [address] CBC AND AUTO DIFFon 05-27-20 24 ABSOLUTE BASOPHIL 0.1 X10E9/L Normal 0.0-0.2 [facility] Comment on above: Performed By: #### C BCA, HA1C, BMP, 24894-7, LIVR #### [facility] ([id number]) [address] [address] [place] [address] ABSOLUTE NEUTROPHIL 3.1 X10E9/L Normal 1.5-6.6 [facility] Comment on above: Performed By: #### C BCA, HA1C, BMP, 38233-6, LIVR #### [facility] ([id number]) [address], [facility] [address] [place] [address] Basophils/100 WBC (Bld) 2.2 % Normal [facility] Comment on above: Performed By: #### C BCA, HA1C, BMP, 39461-5, LIVR #### [facility] ([id number]) [address], [address] [place] [address] Eosinophils (Bld) [#/Vol] 0.1 10*3/uL Normal 0.0-0.4 [facility] Comment on above: Performed By: #### C BCA, HA1C, BMP, 44933-4, LIVR #### [facility] ([id number]) [address], [address] [place] [address] Eosinophils/100 WBC (Bld) 2.0 % Normal [facility] Comment on above: Performed By: #### C BCA, HA1C, BMP, 06533-8, LIVR #### [facility] ([id number]) [address], [address] [place] [address] Erythrocyte distribution width (RBC) [Ratio] 14.6 % Normal 11.5-15.0 [facility] Comment on above: Performed By: #### C BCA, HA1C, BMP, 05998-2, LIVR #### [facility] ([id number]) [address], [address] [place] [address] Hematocrit (Bld) [Volume fraction] 41.9 % Normal 35-47 [facility] Comment on above: Performed By: #### C BCA, HA1C, BMP, 98335-8, LIVR #### [facility] ([id number]) [address], [address] [place] [address] Hemoglobin (Bld) [Mass/Vol] 14.4 g/dL Normal 11.7-15.5 [facility] Comment on above: Performed By: #### C BCA, HA1C, BMP, 89267-6, LIVR #### [facility] ([id number]) [address], [address] [place] [address] Lymphocytes (Bld) [#/Vol] 1.6 10*3/uL Normal 1.0-3.5 [facility] Comment on above: Performed By: #### C BCA, HA1C, BMP, 41569-3, LIVR #### [facility] ([id number]) [address], [address] [place] [address] Lymphocytes/100 WBC (Bld) 29.3 % Normal [facility] Comment on above: Performed By: #### C BCA, HA1C, BMP, 32068-4, LIVR #### [facility] ([id number]) [address], [address] [place] [address] MCH (RBC) [Entitic mass] 31.0 pg Normal 27-34 [facility] Comment on above: Performed By: #### C BCA, HA1C, BMP, 89904-6, LIVR #### [facility] ([id number]) [address], [address] [place] [address] MCHC (RBC) [Mass/Vol] 34.4 g/dL Normal 32-36 [facility] Comment on above: Performed By: #### C BCA, HA1C, BMP, 43967-0, LIVR #### [facility] ([id number]) [address], [address] [place] [address] MCV (RBC) [Entitic vol] 90 fL Normal 80-100 [facility] Comment on above: Performed By: #### C BCA, HA1C, BMP, 55032-7, LIVR #### [facility] ([id number]) [address], [address] [place] [address] Monocytes (Bld) [#/Vol] 0.4 10*3/uL Normal 0-0.9 [facility] Comment on above: Performed By: #### C BCA, HA1C, BMP, 74827-5, LIVR #### [facility] ([id number]) [address], [address] [place] [address] Monocytes/100 WBC (Bld) 8.2 % Normal [facility] Comment on above: Performed By: #### C BCA, HA1C, BMP, 61305-6, LIVR #### [facility] ([id number]) [address], [address] [place] [address] Neutrophils/100 WBC (Bld) 58.3 % Normal [facility] Comment on above: Performed By: #### C BCA, HA1C, BMP, 22419-6, LIVR #### [facility] ([id number]) [address], [address] [place] [address] Platelet mean volume (Bld) [Entitic vol] 8.4 fL Normal 7-12 [facility] Comment on above: Performed By: #### C BCA, HA1C, BMP, 98802-9, LIVR #### [facility] ([id number]) [address], [facility] [address] [place] [address] Platelets (Bld) [#/Vol] 234 10*3/uL Normal 150-450 [facility] Comment on above: Performed By: #### C BCA, HA1C, BMP, 88821-8, LIVR #### [facility] ([id number]) [address] [place] [address] RBC COUNT 4.66 X10E12/L Normal 3.80-5.20 [facility] Comment on above: Performed By: #### C BCA, HA1C, BMP, 60007-8, LIVR #### [facility] ([id number]) [address], [address] [place] [address] WBC (Bld) [#/Vol] 5.3 10*3/uL Normal 4.0-11.0 [facility] Comment on above: Performed By: #### C BCA, HA1C, BMP, 95050-5, LIVR #### [facility] ([id number]) [address], [address] [place] [address] HGB A1C (GLYCO-HGB)on 2023 Glucose [Mass/Vol] 123 mg/dL Normal [facility] Comment on above: Performed By: #### C BCA, HA1C, BMP, 81794-7, LIVR #### [facility] ([id number]) [address], [address] [place] [address] HbA1c (Bld) [Mass fraction] 5.9 % High 4.4-5.6 [facility] Comment on above: Result Comment: NOTE ADA Guidelines Result HgbA1c Normal : less than 5.7 % Prediabetes : 5.7 % to 6.4 % Diabetes : > 6.4 % Use with caution in patients with abnormal hemoglobin variants as the half-life of red blood cells and in vivo glycation rates are affected. Performed By: #### C BCA, HA1C, BMP, 08436-8, LIVR #### [facility] ([id number]) [address] [address] [place] [address] LIVER PANELon 05-27-2024 Albumin [Mass/Vol] 4.3 g/dL Normal 3.2-5.3 [facility] Comment on above: Performed By: #### C BCA, HA1C, BMP, 95744-5, LIVR #### [facility] ([id number]) [address], [address] [place] [address] ALP [Catalytic activity/Vol] 53 U/L Normal 39-130 [facility] Comment on above: Performed By: #### C BCA, HA1C, BMP, 66292-5, LIVR #### [facility] ([id number]) [address], [address] [place] [address] ALT [Catalytic activity/Vol] 11 U/L Normal 0-31 [facility] Comment on above: Performed By: #### C BCA, HA1C, BMP, 85923-3, LIVR #### [facility] ([id number]) [address], [address] [place] [address] AST [Catalytic activity/Vol] 15 U/L Normal 0-41 [facility] Comment on above: Performed By: #### C BCA, HA1C, BMP, 95600-0, LIVR #### [facility] ([id number]) [address], [address] [place] [address] Bilirubin [Mass/Vol] 1.0 mg/dL Normal 0.3-1.2 [facility] Comment on above: Performed By: #### C BCA, HA1C, BMP, 16316-5, LIVR #### [facility] ([id number]) [address], [address] [place] [address] Bilirubin.direct [Mass/Vol] 0.2 mg/dL Normal 0.0-0.4 [facility] Comment on above: Performed By: #### C BCA, HA1C, BMP, 63948-4, LIVR #### [facility] ([id number]) [address], [address] [place] [address] Protein [Mass/Vol] 6.6 g/dL Normal 6.0-8.0 [facility] Comment on above: Performed By: #### C BCA, HA1C, BMP, 74878-6, LIVR #### [facility] ([id number]) [address], [address] [place] [address] Lipid 1996 panelon 4 Cholesterol [Mass/Vol] 136 mg/dL Low 150-200 [facility] Comment on above: Performed By: #### C BCA, HA1C, BMP, 10450-5, LIVR #### [facility] ([id number]) [address], [address] [place] [address] Cholesterol in HDL [Mass/Vol] 54 mg/dL Normal >39 [facility] Comment on above: Result Comment: HDL <40 mg/dL - High Risk HDL > or = 40mg/dL- Desirable HDL >60 mg/dL - Negative Risk Performed By: #### C BCA, HA1C, BMP, 86904-1, LIVR #### [facility] ([id number]) [address], [address] [place] [address] Cholesterol in LDL [Mass/Vol] 68 mg/dL Normal <130 [facility] Comment on above: Result Comment: LDL <100 mg/dL - Desirable LDL >160 mg/dL - High Risk Performed By: #### C BCA, HA1C, BMP, 16569-7, LIVR #### [facility] ([id number]) [address] [place] [address] Cholesterol in VLDL [Mass/Vol] 14 mg/dL Normal 0-30 [facility] Comment on above: Performed By: #### C BCA, HA1C, BMP, 22945-8, LIVR #### [facility] ([id number]) [address], [address] [place] [address] CHOLESTEROL:HDL 2.5 Normal 1.0-5.0 [facility] Comment on above: Performed By: #### C BCA, HA1C, BMP, 54854-8, LIVR #### [facility] ([id number]) [address], [address] [place] [address] Triglyceride [Mass/Vol] 70 mg/dL Normal 27-150 [facility] Comment on above: Performed By: #### C BCA, HA1C, BMP, 68134-5, LIVR #### [facility] ([id number]) [address] [facility] [place] [address] XR KNEE LT 3 VWSon 4 XR KNEE LT 3 VWS XR KNEE LT 3 VWS XR KNEE LT 3 VWS Clinical history: Acute knee pain Comparison: None. Findings: No joint effusion. No fracture or dislocation. Alignment and mineralization appear to be within normal limits. Osteopenia. Impression: No evidence of acute ossific abnormality. Finalized by Ko Rosales MD on 03/23/2024 8:22 PM Normal [facility] XR WRIST LT MIN 3 VWSon 05 XR WRIST LT MIN 3 VWS XR WRIST LT MIN 3 VWS XR WRIST LT MIN 3 VWS Clinical history:fall pain acute wrist pain Comparison: None. Findings: No acute process fracture or dislocation. Degenerative changes are noted. If there is snuffbox tenderness or concern for scaphoid injury, follow up evaluation in 7 to10 days may be of additional diagnostic benefit. Impression: No definitive acute osseous abnormality identified. Finalized by Ko Rosales MD on 03/23/2024 7:50 PM Normal [facility] CARDIAC MICHELL ADMITon 023 CK [Catalytic activity/Vol] 70 U/L Normal 26-192 [facility] Comment on above: Performed By: #### C JEAN GAMEZ #### [facility] [address] [address] [address] Jules Fabian CK.MB [Mass/Vol] 0.94 ng/mL Normal <=3.60 [facility] Comment on above: Performed By: #### C JEAN GAMEZ #### [facility] [address] [address] [address] Jules Fabian HSTROP 8.3 pg/mL Normal 4.0-51.3 [facility] Comment on above: Result Comment: CUT- OFF POINTS HAVE BEEN ESTABLISHED BASED ON THE FOURTH UNIVERSAL DEFINITIONS OF MYOCARDIAL INFARCTION. THE UPPER REFERENCE LIMIT (URL) OF TROPONIN, DEFINED THE 99TH PERCENTILE OF cTnI DISTRIBUTION IN A REFERENCE POPULATION, HAS BEEN CONFIRMED THE DECISION THRESHOLD FOR PR DIAGNOSIS. Performed By: #### C JEAN GAMEZ #### [facility] [address] [address] [address] Jules Fabian BRET 61 ng/mL Normal 9-82 [facility] Comment on above: Performed By: #### C MP, CMADM #### [facility] [address] [place] [address] Dr. Jules Fabian CBC AUTO DIFFon 03-27-2023 BASO # 0.0 103/ul Normal 0.0-0.1 [facility] Comment on above: Performed By: #### C BC #### [facility] [address] [place] [address] Dr. Jules Fabian Basophils/100 WBC (Bld) 0.7 % Normal 0.2-2.0 [facility] Comment on above: Performed By: #### C BC #### [facility] [address] [place] [address] Dr. Jules Fabian EO # 0.0 103/ul Normal 0.0-0.7 [facility] Comment on above: Performed By: #### C BC #### [facility] [address] [place] [address] Dr. Jules Fabian Eosinophils/100 WBC (Bld) 0.4 % Critically low 0.9-7.0 [facility] Comment on above: Performed By: #### C BC #### [facility] [address] [place] [address] Dr. Jules Fabian Erythrocyte distribution width (RBC) [Ratio] 13.4 % Normal 11.0-15.0 [facility] Comment on above: Performed By: #### C BC #### [facility] [address] [place] [address] Dr. Jules Fabian Hematocrit (Bld) [Volume fraction] 45.1 % Normal 36.0-48.0 [facility] Comment on above: Performed By: #### C BC #### [facility] [address] [place] [address] Dr. Jules Fabian Hemoglobin (Bld) [Mass/Vol] 15.7 g/dL Normal 12.0-16.0 [facility] Comment on above: Performed By: #### C BC #### [facility] [address] [address] [address] Jules Fabian IG # 0.01 10e3/ul Normal 0.00-0.03 [facility] Comment on above: Performed By: #### C BC #### [facility] [address] [place] [address] Dr. Jules Fabian IG % 0.2 % Normal 0.0-0.5 [facility] Comment on above: Performed By: #### C BC #### [facility] [address] [place] [address] Dr. Jules Fabian LYMPH # 0.9 103/ul Critically low 1.2-3.8 [facility] Comment on above: Performed By: #### C BC #### [facility] [address] [place] [address] Dr. Jules Fabian Lymphocytes/100 WBC (Bld) 20.2 % Critically low 20.5-60.0 [facility] Comment on above: Performed By: #### C BC #### [facility] [address] [place] [address] Dr. Jules Fabian MANUAL DIFF REQ NO Normal [facility] Comment on above: Performed By: #### C BC #### [facility] [address] [place] [address] Dr. Jules Fabian MCH (RBC) [Entitic mass] 29.5 pg Normal 26.7-34.0 [facility] Comment on above: Performed By: #### C BC #### [facility] [address] [place] [address] Dr. Jules Fabian MCHC (RBC) [Mass/Vol] 34.8 g/dL Normal 29.9-35.2 [facility] Comment on above: Performed By: #### C BC #### [facility] [address] [place] [address] Dr. Jules Fabian MCV (RBC) [Entitic vol] 84.8 fL Normal 81.0-99.0 [facility] Comment on above: Performed By: #### C BC #### [facility] [address] [place] [address] Dr. Jules Fabian MONO # 0.4 103/ul Normal 0.3-0.8 [facility] Comment on above: Performed By: #### C BC #### [facility] [address] [place] [address] Dr. Jules Fabian Monocytes/100 WBC (Bld) 8.8 % Normal 1.7-12.0 [facility] Comment on above: Performed By: #### C BC #### [facility] [address] [place] [address] Dr. Jules Fabian NEUT # 3.2 103/ul Normal 1.4-6.5 [facility] Comment on above: Performed By: #### C BC #### [facility] [address] [place] [address] Dr. Jules Fabian Neutrophils/100 WBC (Bld) 69.7 % Normal 43.0-75.0 [facility] Comment on above: Performed By: #### C BC #### [facility] [address] [place] [address] Dr. Jules Fabian Platelet mean volume (Bld) [Entitic vol] 10.2 fL Normal 9.5-13.5 [facility] Comment on above: Performed By: #### C BC #### [facility] [address] [place] [address] Dr. Jules Fabian PLT 212 103/ul Normal 150-450 [facility] Comment on above: Performed By: #### C BC #### [facility] [address] [place] [address] Dr. Jules Fabian RBC 5.32 106/ul Normal 4.20-5.40 [facility] Comment on above: Performed By: #### C BC #### [facility] [address] [place] [address] Dr. Jules Fabian WBC 4.6 103/ul Normal 4.0-11.0 [facility] Comment on above: Performed By: #### C BC #### [facility] [address] [place] [address] Dr. Jules Fabian LIPASEon 03-27-2023 Lipase [Catalytic activity/Vol] 86.0 U/L Normal 73.0-393.0 [facility] Comment on above: Performed By: #### L IPA, MG #### [facility] [address] [place] [address] Dr. Jules Fabian MAGNESIUMon 03-27-2023 Magnesium [Mass/Vol] 1.9 mg/dL Normal 1.8-2.4 [facility] Comment on above: Performed By: #### L IPA, MG #### [facility] [address] [place] [address] Dr. Jules Fabian PROF 14(COMP METB)on 023 Albumin [Mass/Vol] 3.3 g/dL Critically low 3.4-5.0 [facility] Comment on above: Performed By: #### C VERA, CMADM #### [facility] [address] [place] [address] Dr. Jules Fabian Albumin/Globulin [Mass ratio] 0.8 {ratio} Normal [facility] Comment on above: Performed By: #### C VERA, CMADM #### [facility] [address] [place] [address] Dr. Jules Fabian ALP [Catalytic activity/Vol] 61 U/L Normal 46-116 [facility] Comment on above: Performed By: #### C VERA, CMADM #### [facility] [address] [place] [address] Dr. Jules Fabian ALT [Catalytic activity/Vol] 22 U/L Normal 14-59 [facility] Comment on above: Performed By: #### C VERA, CMADM #### [facility] [address] [place] [address] Dr. Jules Fabian Anion gap [Moles/Vol] 17.8 mmol/L Normal [facility] Comment on above: Performed By: #### C VERA, CMADM #### [facility] [address] [place] [address] Dr. Jules Fabian AST [Catalytic activity/Vol] 30 U/L Normal 15-37 [facility] Comment on above: Performed By: #### C VERA, CMADM #### [facility] [address] [address] [address] Jules Fabian Bilirubin [Mass/Vol] 1.2 mg/dL Critically high 0.2-1.0 [facility] Comment on above: Performed By: #### C MP, CMADM #### [facility] [address] [address] [address] Jules Fabian Calcium [Mass/Vol] 8.1 mg/dL Critically low 8.5-10.1 [facility] Comment on above: Performed By: #### C MP, CMADM #### [facility] [address] [address] [address] Jules Fabian Chloride [Moles/Vol] 93 mmol/L Critically low 98-107 [facility] Comment on above: Performed By: #### C MP, CMADM #### [facility] [address] [address] [address] Jules Fabian CO2 [Moles/Vol] 23.4 mmol/L Normal 21.0-32.0 [facility] Comment on above: Performed By: #### C MP, CMADM #### [facility] [address] [address] [address] Jules Fabian Creatinine [Mass/Vol] 1.13 mg/dL Critically high 0.55-1.02 [facility] Comment on above: Performed By: #### C MP, CMADM #### [facility] [address] [address] [address] Jules Fabian EGFR-AF [facility] 57 mL/min/1.73m2 Critically low >=60 [facility] Comment on above: Performed By: #### C MP, CMADM #### [facility] [address] [address] [address] Jules Fabian EGFR-NON AF [facility] 47 mL/min/1.73m2 Critically low >=60 [facility] Comment on above: Performed By: #### C MP, CMADM #### [facility] [address] [address] [address] Jules Fabian Globulin (S) [Mass/Vol] 4.0 g/dL Normal [facility] Comment on above: Performed By: #### C VERA, CMADM #### [facility] [address] [address] [address] Jules Fabian Glucose [Mass/Vol] 129 mg/dL Critically high 74-106 [facility] Comment on above: Performed By: #### C VERA, CMADM #### [facility] [address] [address] [address] Jules Fabian Potassium [Moles/Vol] 3.2 mmol/L Critically low 3.5-5.1 [facility] Comment on above: Performed By: #### C VERA, TIMDM #### [facility] [address] [place] [address] Dr. Jules Fabian Protein [Mass/Vol] 7.3 g/dL Normal 6.4-8.2 [facility] Comment on above: Performed By: #### C TIM GAMEZDM #### [facility] [address] [place] [address] Dr. Jules Fabian Sodium [Moles/Vol] 131 mmol/L Critically low 136-145 [facility] Comment on above: Performed By: #### C VERA, TIMDM #### [facility] [address] [place] [address] Dr. Jules Fabian Urea nitrogen [Mass/Vol] 15.0 mg/dL Normal 7.0-18.0 [facility] Comment on above: Performed By: #### C VERA, TIMDM #### [facility] [address] [place] [address] Dr. Jules Fabian Urea nitrogen/Creatinin e [Mass ratio] 14.2 mg/mg Normal [facility] Comment on above: Performed By: #### C VERA, CMADM #### [facility] [address] [place] [address] Dr. Jules Fabian XR CHEST 1 Von 03-27-2023 XR CHEST 1 V EXAM: XR CHEST 1 V a t 1326 hours HISTORY: NAUSEA WITH VOMITING, UNSPECIFIED COMPARISON: 11/03/2022 TECHNIQUE: AP upright portable chest x-ray FINDINGS: The heart is not enlarged and the vasculature is not distended. A small amount of atelectasis is suggested at the left lung base. No acute infiltrate, effusion or pneumothorax is identified. The osseous structures are grossly intact. IMPRESSION: There is the suggestion of a small amount of atelectasis at the left lung base. The chest is otherwise clear, without evidence of a focal infiltrate or cardiac decompensation. Electronically authenticated by: VINCENZO OLIVEIRA Date: 2023-03-27 13:45 Normal [facility] HEMOGLOBINon 12-12-2022 Hemoglobin (Bld) [Mass/Vol] 14.4 g/dL Normal 12.0-16.0 [facility] Comment on above: Performed By: #### H GB #### [facility] [address] [place] [address] Dr. Jules Fabian CALCIUMon 11-08-2022 Calcium [Mass/Vol] 9.3 mg/dL Normal 8.5-10.1 [facility] Comment on above: Performed By: #### KRISTINE MANJARREZ #### [facility] [address] [place] [address] Dr. Jules Fabian CREATININEon 11-08-2022 Creatinine [Mass/Vol] 1.05 mg/dL Critically high 0.55-1.02 [facility] Comment on above: Performed By: #### KRISTINE MANJARREZ #### [facility] [address] [place] [address] Dr. Jules Fabian EGFR-AF [facility] >60 Normal >=60 [facility] Comment on above: Performed By: #### KRISTINE MANJARREZ #### [facility] [address] [place] [address] Dr. Jules Fabian EGFR-NON AF [facility] 51 mL/min/1.73m2 Critically low >=60 [facility] Comment on above: Performed By: #### KRISTINE MANJARREZ #### [facility] [address] [place] [address] Dr. Jules Fabian XR CHEST 2 Von 11-03-2022 XR CHEST 2 V EXAMINATION: XR CHES T 2 V HISTORY: Pneumonia , shortness breath, chest tightness COMPARISON: XR chest 03/30/2022 FINDINGS: LUNGS: Prominent pericardial fat pads within medial lung bases. No significant pulmonary parenchymal abnormalities. VASCULATURE: No increased pulmonary vasculature. PLEURA: No pneumothorax, effusion, or pleural thickening. CARDIAC: No cardiomegaly or cardiac silhouette abnormality. MEDIASTINUM: No visible mass or adenopathy. BONES: No fracture or visible bone lesion. OTHER: Negative. IMPRESSION: 1. No acute cardiopulmonary process. Stable chest. Electronically authenticated by: SHARMILA HANCOCK Date: 2022-11-03 10:03 Normal [facility] Vital Signs Date Time Vital Sign Value Performing Clinician Faci lity 05-19-2025 09:04-0400 Body height 154.9 cm Magnus Vora MD Work Phone: [facility] 05-19-2025 09:04-0400 Body mass index (BMI) [Ratio] 27.02 kg/m2 Magnus Vora MD Work Phone: [facility] 05-19-2025 09:04-0400 Body temperature 97.3 [degF] Magnus Vora MD Work Phone: [facility] 05-19-2025 09:04-0400 Body weight 64.86 kg Magnus Vora MD Work Phone: [facility] 05-19-2025 09:04-0400 Diastolic blood pressure 58 mm[Hg] Magnus Vroa MD Work Phone: [facility] 05-19-2025 09:04-0400 Heart rate 91 /min Magnus Vora MD Work Phone: [facility] 05-19-2025 09:04-0400 Respiratory rate 22 /min Magnus Vora MD Work Phone: [facility] 05-19-2025 09:04-0400 SaO2% (BldA) [Mass fraction] 91 % Magnus Vora MD Work Phone: [facility] 05-19-2025 09:04-0400 Systolic blood pressure 124 mm[Hg] Magnus Vora MD Work Phone: [facility] 01-13-2025 10:32-0400 Body height 154.9 cm Magnus Vora MD Work Phone: [facility] 01-13-2025 10:32-0400 Body mass index (BMI) [Ratio] 27.02 kg/m2 Magnus Vora MD Work Phone: [facility] 01-13-2025 10:32-0400 Body temperature 97.11 [degF] Magnus Vora MD Work Phone: [facility] 01-13-2025 10:32-0400 Body weight 64.86 kg Magnus Vora MD Work Phone: [facility] 01-13-2025 10:32-0400 Diastolic blood pressure 64 mm[Hg] Magnus Vora MD Work Phone: [facility] 01-13-2025 10:32-0400 Heart rate 100 /min Magnus Vora MD Work Phone: [facility] 01-13-2025 10:32-0400 Respiratory rate 20 /min Magnus Vora MD Work Phone: [facility] 01-13-2025 10:32-0400 SaO2% (BldA) [Mass fraction] 94 % Magnus Vora MD Work Phone: [facility] 01-13-2025 10:32-0400 Systolic blood pressure 122 mm[Hg] Magnus Vora MD Work Phone: [facility] 10-16-2024 10:31-0500 Body height 154.9 cm Magnus Vora MD Work Phone: [facility] 10-16-2024 10:31-0500 Body mass index (BMI) [Ratio] 27.02 kg/m2 Magnus Vora MD Work Phone: [facility] 10-16-2024 10:31-0500 Body temperature 96.01 [degF] Magnus Vora MD Work Phone: [facility] 10-16-2024 10:31-0500 Body weight 64.86 kg Magnus Vora MD Work Phone: [facility] 10-16-2024 10:31-0500 Diastolic blood pressure 70 mm[Hg] Magnus Vora MD Work Phone: [facility] 10-16-2024 10:31-0500 Heart rate 86 /min Magnus Vora MD Work Phone: [facility] 10-16-2024 10:31-0500 Respiratory rate 20 /min Magnus Vora MD Work Phone: [facility] 10-16-2024 10:31-0500 SaO2% (BldA) [Mass fraction] 98 % Magnus Vora MD Work Phone: [facility] 10-16-2024 10:31-0500 Systolic blood pressure 140 mm[Hg] aMgnus Vora MD Work Phone: [facility] 10-11-2024 10:07-0500 Body height 154.9 cm Susie Kaylin DO Work Phone: [facility] 10-11-2024 10:07-0500 Body mass index (BMI) [Ratio] 27.59 kg/m2 Susie Kaylin DO Work Phone: [facility] 10-11-2024 10:07-0500 Body weight 66.22 kg Susie Kaylin DO Work Phone: [facility] 10-11-2024 10:07-0500 Diastolic blood pressure 83 mm[Hg] Susie Kaylin DO Work Phone: [facility] 10-11-2024 10:07-0500 Heart rate 78 /min Susie Kaylin DO Work Phone: [facility] 10-11-2024 10:07-0500 SaO2% (BldA) [Mass fraction] 94 % Susie Kaylin DO Work Phone: [facility] 10-11-2024 10:07-0500 Systolic blood pressure 129 mm[Hg] Susie Kaylin DO Work Phone: [facility] 07-18-2024 10:53-0400 Body height 154.9 cm Magnus Vora MD Work Phone: [facility] 07-18-2024 10:53-0400 Body mass index (BMI) [Ratio] 26.64 kg/m2 Magnus Vora MD Work Phone: [facility] 07-18-2024 10:53-0400 Body temperature 97.11 [degF] Magnus Vora MD Work Phone: [facility] 07-18-2024 10:53-0400 Body weight 63.96 kg Magnus Vora MD Work Phone: [facility] 07-18-2024 10:53-0400 Diastolic blood pressure 74 mm[Hg] Magnus Vora MD Work Phone: [facility] 07-18-2024 10:53-0400 Heart rate 88 /min Magnus Vora MD Work Phone: [facility] 07-18-2024 10:53-0400 Respiratory rate 20 /min Magnus Vora MD Work Phone: [facility] 07-18-2024 10:53-0400 SaO2% (BldA) [Mass fraction] 93 % Magnus Vora MD Work Phone: [facility] 07-18-2024 10:53-0400 Systolic blood pressure 152 mm[Hg] Magnus Vora MD Work Phone: [facility] Encounters Encounter Date Encounter Type Care Provider Facility Start: 05-19-2025 End: 05-19-2025 Bamboo flowsheet Magnus Vora MD Work Phone: [facility] Start: 05-19-2025 End: 05-19-2025 Bamboo flowsheet Magnus Vora MD Work Phone: [facility] Start: 05-19-2025 End: 05-19-2025 Office outpatient visit 25 minutes Magnus Vroa MD Work Phone: [facility] Comment on above: Chronic right should er pain (Primary Dx); Wright's cyst of knee, left; Chronic pain of left knee; Other pulmonary embolism without acute cor pulmonale (HCC); Dyslipidemia ; GERD without esophagitis; Chronic obstructive pulmonary disease, unspecified COPD type (HCC); Degeneration of intervertebral disc of lumbar region with discogenic back pain Start: 01-13-2025 End: 01-13-2025 Bamboo flowsheet Magnus Vora MD Work Phone: [facility] Start: 01-13-2025 End: 01-13-2025 Bamboo flowsheet Magnus Vora MD Work Phone: [facility] Start: 01-13-2025 End: 01-13-2025 Patient encounter procedure Magnus Vora MD Work Phone: [facility] Work Phone: Start: 01-13-2025 End: 01-13-2025 Postop follow up visit related to original px Magnus Vora MD Work Phone: [facility] Comment on above: Medicare annual well ness visit, subsequent (Primary Dx); DDD (degenerative disc disease), cervical; Chronic obstructive pulmonary disease, unspecified COPD type (CMS/HCC); Secondary pulmonary arterial hypertension (CMS/HCC) Start: 01-13-2025 End: 01-13-2025 ambulatory MAGNUS VORA Not Available Start: 12-13-2024 End: 12-13-2024 Refill Magnus Vora MD Work Phone: [facility] Comment on above: Chronic obstructive pulmonary disease, unspecified COPD type (CMS/HCC) (Primary Dx) Start: 11-08-2024 End: 11-08-2024 Telephone encounter Susie Ewing DO Work Phone: [facility] Start: 10-16-2024 End: 10-16-2024 Bamboo flowsheet Magnus Vora MD Work Phone: [facility] Start: 10-16-2024 End: 10-16-2024 Bamboo flowsheet Magnus Vora MD Work Phone: [facility] Start: 10-16-2024 End: 10-16-2024 Office outpatient visit 25 minutes Magnus Vora MD Work Phone: [facility] Comment on above: Essential hypertensi on, benign (CMS/HCC) (Primary Dx); Chronic obstructive pulmonary disease, unspecified COPD type (CMS/HCC); Degeneration of intervertebral disc of lumbar region with discogenic back pain; GERD without esophagitis; Seasonal allergic rhinitis due to pollen Start: 10-16-2024 End: 10-16-2024 ambulatory MAGNUS VORA Not Available Start: 10-11-2024 End: 10-11-2024 Bamboo flowsheet Susie K Kaylin DO Work Phone: [facility] Start: 10-11-2024 End: 10-11-2024 Bamboo flowsheet Susie K Kaylin DO Work Phone: [facility] Start: 10-11-2024 End: 10-11-2024 Office outpatient new 45 minutes Susie K Kaylin DO Work Phone: [facility] Comment on above: Chronic obstructive pulmonary disease, unspecified COPD type (CMS/HCC) Start: 10-11-2024 End: 10-11-2024 ambulatory SUSIE Kiko KAYLIN Not Available Start: 08-05-2024 End: 08-05-2024 Bamboo flowsheet Magnus Vora MD Work Phone: [facility] Start: 08-05-2024 End: 08-05-2024 Bamboo flowsheet Magnus Vora MD Work Phone: [facility] Start: 07-30-2024 End: 07-30-2024 ambulatory MAGNUS VORA Not Available Start: 07-18-2024 End: 07-18-2024 Bamboo flowsheet Magnus Vora MD Work Phone: [facility] Start: 07-18-2024 End: 07-18-2024 Bamboo flowsheet Magnus Vora MD Work Phone: [facility] Start: 07-18-2024 End: 07-18-2024 ambulatory MAGNUS VORA Not Available Start: 07-18-2024 End: 07-18-2024 Office outpatient visit 15 minutes Magnus Vora MD Work Phone: [facility] Comment on above: Chronic obstructive pulmonary disease, unspecified COPD type (CMS/HCC) (Primary Dx); Essential hypertension, benign (CMS/HCC); Dyslipidemia (CMS/HCC) Start: 05-31-2024 End: 05-31-2024 ambulatory MAGNUS [facility] Start: 05-27-2024 End: 05-27-2024 ambulatory [facility] Start: 04-24-2024 End: 04-24-2024 ambulatory MAGNUS VORA Not Available Start: 04-11-2024 End: 04-11-2024 Evaluation and management of inpatient MARIBEL CHURCHILL [facility] Start: 04-11-2024 End: 04-11-2024 Evaluation and management of inpatient MARIE E [facility] Start: 03-26-2024 End: 03-26-2024 Evaluation and management of inpatient PEMA Chilel [facility] Start: 03-26-2024 End: 03-26-2024 Evaluation and management of inpatient MARIE E [facility] Start: 03-23-2024 End: 03-24-2024 Emergency department patient visit GYPSY PRICE [facility] Start: 03-05-2024 End: 03-05-2024 ambulatory PEMA Getachew [facility] Start: 03-05-2024 Encounter for other preprocedural examination [facility] Start: 03-27-2023 End: 03-27-2023 ambulatory AKUA MURGUIA . Facility:[facility] Start: 12-12-2022 End: 12-13-2022 ambulatory KATTY Barrera Facility:[facility] Start: 11-08-2022 End: 11-08-[address] MAGNUS VORA Facility:[facility] Start: 11-03-2022 End: 11-04-[address] MAGNUS VORA Facility:[facility] Plan of Treatment Date Care Activity Detail Author Start: 01-13-2026 Medicare Annual Wellness (AWV) Medicare Annual Wellness (AWV) [facility] Start: 10-10-2025 End: 10-10-2025 Patient encounter procedure 10/10/2025 9:45 AM EST Office Visit [facility] [address] [place] [phone] Suise Ewing, DO [address] [place] [address] [facility] Start: 07-16-2025 End: 07-16-2025 Patient encounter procedure 07/16/2025 10:00 AM EDT Office Visit [facility] [address] [place] [phone] Magnus Vora MD [address] [place] [id number] [facility] Start: 06-30-2025 Influenza vaccination Influenza Vacc ine (#1) [facility] Start: 05-19-2025 End: 05-19-2026 XR Knee - left 1 or 2 Views XR knee 1 or 2 views left Imaging Routine Chronic pain of left knee Expected: 05/19/2025, Expires: 05/19/2026 [facility] Comment on above: Expected: 05/19/2025 , Expires: 05/19/2026 Start: 05-19-2025 End: 05-19-2026 XR Shoulder - right 2 Views XR shoulder 2+ views right Imaging Routine Chronic right shoulder pain Expected: 05/19/2025, Expires: 05/19/2026 [facility] Healthcare Work Phone: Comment on above: Expected: 05/19/2025 , Expires: 05/19/2026 Start: 05-19-2025 End: 05-19-2025 Patient encounter procedure 05/19/2025 9:00 AM EDT Office Visit [facility] [address] [place] [address] Magnus Vora MD [address] [place] [phone] Arrived [facility] Comment on above: Arrived Start: 01-13-2025 End: 01-13-2025 Patient encounter procedure [facility] Comment on above: Arrived Start: 10-16-2024 End: 10-16-2024 Patient encounter procedure [facility] Comment on above: Arrived Start: 10-11-2024 End: 10-11-2024 Patient encounter procedure 10/11/2024 10:15 AM EST Consult [facility] [address] [place] [address] Susie Ewing, [address] [place] [address] Chronic obstructive pulmonary disease, unspecified COPD type (CMS/HCC) [facility] Comment on above: Chronic obstructive pulmonary disease, unspecified COPD type (CMS/HCC) Start: 08-05-2024 End: 08-05-2024 Patient encounter procedure 08/05/2024 1:45 PM EDT Office Visit [facility] [address] [place] [phone] Magnus Vora MD [address] [place] [phone] Arrived [facility] Comment on above: Arrived Start: 06-30-2024 Influenza vaccination Influenza Vacc ine (#1) [facility] Start: 1950 Medicare Annual Wellness (AWV) Medicare Annual Wellness (AWV) [facility] Start: 1950 Screening for malign ant neoplasm of colon [facility] Start: 1950 Screening for malign ant neoplasm of lung Lung Cancer Screening Shared Decision Making [facility] Immunizations Immunization Date Immunization Notes Care Provider Fa cility 07-23-2024 Seasonal trivalent influenza vaccine, adjuvanted, preservative free Susie Benitezck DO Work Phone: [facility] 07-23-2024 influenza virus vacc ine, unspecified formulation Magnus Vora MD Work Phone: [facility] 07-22-2023 Pneumococcal Conjuga te PCV 20 Susie Kaylin DO Work Phone: [facility] 07-22-2023 RSV, recombinant, pr otein subunit RSVpreF, adjuvant reconstitu, 120mcg/0.5mL, PF (Arexvy) Susie Kaylin DO Work Phone: [facility] 07-18-2023 pneumococcal conjuga te 20-valent (Prevnar 20) 0.5 ML vaccine Magnus Vora MD Work Phone: [facility] 06-30-2023 Influenza, Seasonal, Quadrivalent, Adjuvanted Susie Kaylin DO Work Phone: [facility] 06-30-2023 influenza virus vacc ine, unspecified formulation Magnus Vora MD Work Phone: [facility] 08-01-2022 influenza, injectabl e, quadrivalent, preservative free Susie Kaylin DO Work Phone: [facility] 07-23-2021 Influenza, Seasonal, Quadrivalent, Adjuvanted Susie Kaylin DO Work Phone: [facility] 11-10-2020 zoster vaccine recombinant L eanne Kaylin DO Work Phone: [facility] 09-03-2020 zoster vaccine recombinant L eanne Kaylin DO Work Phone: [facility] 07-15-2020 Influenza, High-dose Seasonal, Quadrivalent, Preservative Free Susie Kaylin DO Work Phone: [facility] 2019 influenza, injectabl e, quadrivalent, contains preservative Susie Kaylin DO Work Phone: [facility] 08-20-2018 influenza, injectabl e, quadrivalent, preservative free Susie Kaylin DO Work Phone: [facility] 03-11-2018 tetanus toxoid, redu chin diphtheria toxoid, and acellular pertussis vaccine, adsorbed Susie Kaylin DO Work Phone: [facility] 07-30-2017 influenza, injectabl e, quadrivalent, preservative free Susie Kaylin DO Work Phone: [facility] 07-30-2016 pneumococcal polysaccharide vaccine, 23 valent Susie Kaylin DO Work Phone: [facility] 07-24-2013 influenza virus vacc ine, whole virus Susie Kaylin DO Work Phone: [facility] 07-30-2012 pneumococcal polysaccharide vaccine, 23 valent Susie Kaylin DO Work Phone: [facility] 08-15-2007 influenza virus vacc ine, whole virus Susie Kaylin DO Work Phone: [facility] Payers Date Payer Category Payer Medicare (Managed Care) [employer] [id number] 2024 Medicare [id number] 2017 Medicaid [id number] 2013 Medicare [id number]. [id number] 1959 Medicaid [id number] 1959 Medicare [id number] 1948 Unknown [id number] 2.16.840.1.544763.3.579.2. 593 1948 Unknown [id number] 2.16.840.1.885002.3.579.2. 593 1948 Unknown [id number] 2.16.840.1.945850.3.579.2. 593 1948 Unknown [id number] 2.16.840.1.576335.3.579.2. 593 1948 Unknown [id number] 2.16.840.1.086971.3.579.2. 128 1948 Unknown [id number] 2.16.840.1.854119.3.579.2. 1285 1948 Unknown [id number] 2.16.840.1.900280.3.579.2. 1285 1948 Unknown [id number] 2.16.840.1.564140.3.579.2. 1285 1948 Unknown [id number] 2.16.840.1.090073.3.579.2. 1285 1948 Unknown [id number] 2.16.840.1.515606.3.579.2. 1285 1948 Unknown [id number] 2.16.840.1.456709.3.579.2. 1285 1948 Unknown [id number] 2.16.840.1.753183.3.579.2. 1285 1948 Unknown [id number] 2.16.840.1.424110.3.579.2. 1285 1948 Unknown [id number] 2.16.840.1.676426.3.579.2. 1285 1948 Unknown [id number] 2.16.840.1.984351.3.579.2. 1285 1948 Unknown [id number] 2.16.840.1.915054.3.579.2. 1286 1948 Unknown [id number] 2.16.840.1.504048.3.579.2. 6 1948 Unknown [id number] 2.16.840.1.247084.3.579.2. 1259 1948 Unknown [id number] 2.16.840.1.434820.3.579.2. 1258 1948 Unknown [id number] 2.16.840.1.789554.3.579.2. 1258 1948 Unknown [id number] 2.16.840.1.472863.3.579.2. 1258 1948 Unknown [id number] 2.16.840.1.688643.3.579.2. 1258 1948 Unknown [id number] 2.16840.1.856570.3.579.2. 1259 Social History Date Type Detail Facility Start: 10-18-2023 End: 10-11-2024 Tobacco smoking status [facility] Start: 10-30-1982 End: 10-30-2012 History of tobacco use Current smoker [facility] Start: 10-30-1982 End: 10-30-2012 History of tobacco use Cigarette Smoker [facility] Start: 10-18-2023 End: 05-17-2025 Cigarettes smoked current (pack per day) - Reported 1 [facility] Start: 10-18-2023 End: 10-11-2024 Tobacco use and exposure Smokeless tobacco non-user [facility] Start: 04-17-2024 End: 05-17-2025 [id number] Health Literacy [facility] How often do you nee d to have someone help you when you read instructions, pamphlets, or other written material from your doctor or pharmacy [SILS] Never [facility] Do you belong to any clubs or organizations such as pentecostalism groups, unions, fraternal or athletic groups, or school groups? No [facility] Are you now , , , , never or living with a partner? [facility] How often to you hav e a drink containing alcohol? Monthly or less [facility] How many standard dr inks containing alcohol do you have on a typical day? 1 or 2 [facility] How often do you hav e 6 or more drinks on 1 occasion? Never [facility] How hard is it for y ou to pay for the very basics like food, housing, medical care, and heating Hard [facility] Do you feel stress - tense, restless, nervous, or anxious, or unable to sleep at night because your mind is troubled all the time - these days [OSQ] Only a little [facility] (I/We) worried wheth er (my/our) food would run out before (I/we) got money to buy more. Sometimes true [facility] The food that (I/we) bought just didn't last, and (I/we) didn't have money to get more. Often true [facility] Start: 1950 Sex assigned at Not on file [facility] Start: 10-11-2024 End: 05-19-2025 Alcoholic beverage intake Current drinker of alcohol (finding) [facility] Start: 10-11-2024 Alcohol Comment rarely [facility] How often to you hav e a drink containing alcohol? 2-3 time sa week [facility] How hard is it for y ou to pay for the very basics like food, housing, medical care, and heating Not very hard [facility] (I/We) worried wheth er (my/our) food would run out before (I/we) got money to buy more. Never true [facility] How hard is it for y ou to pay for the very basics like food, housing, medical care, and heating Somewhat hard [facility] Clinical Notes 07-18-2024 to 05-19-2025 Magnus Vora MD - 05/19/2025 9:44 AM Marco Vora MD - 05/19/2025 9:44 AM Marco Vora MD - 05/19/2025 9:00 AM Marco Vora MD - 01/13/2025 11:05 AM EDT Note Date & Type Note Facility 05-19-2025 History of Presen t illness Narrative Associated Problem(s): Chronic right shoulder pain Likely OA and check x-ray. Treat with prednisone and start PT. If no improvement will refer to ortho. Associated Problem(s): Chronic pain of left knee Likely OA and check x-ray. Treat with prednisone and start PT. If no improvement will refer to ortho. Images from the original note were not included. Subjective Patient ID: Vane Anaya is a 74 y.o. female who presents for Follow-up (Right arm pain/Cyst behind knee). C/o pain in right shoulder for months to years and getting worse. Pain on top shoulder and over AC joint. Pain into right upper arm. Pain worse with lifting and use of arm. Full ROM but pain with movement. Avoiding use and avoids lifting due to pain. Starting to use left arm more and causing pain. Right-handed. No prior evaluation. No fall, injury, or trauma. C/o cyst behind left knee for years. Increased in size and pain with walking and standing. Pain in left knee. No popping or clicking. Not unsteady or giving out. Review of Systems Respiratory: Negative for cough, shortness of breath and wheezing. Cardiovascular: Negative for chest pain and palpitations. Gastrointestinal: Negative for abdominal pain, diarrhea, nausea and vomiting. Genitourinary: Negative for dysuria. Objective Physical Exam Constitutional: General: She is not in acute distress. Appearance: Normal appearance. HENT: Head: Normocephalic. Right Ear: Tympanic membrane normal. Left Ear: Tympanic membrane normal. Eyes: Extraocular Movements: Extraocular movements intact. Pupils: Pupils are equal, round, and reactive to light. Cardiovascular: Rate and Rhythm: Normal rate and regular rhythm. Heart sounds: No murmur heard. No friction rub. No gallop. Pulmonary: Effort: Pulmonary effort is normal. Breath sounds: Normal breath sounds. No wheezing, rhonchi or rales. Abdominal: General: Bowel sounds are normal. There is no distension. Palpations: Abdomen is soft. Tenderness: There is no abdominal tenderness. There is no guarding or rebound. Musculoskeletal: Cervical back: Neck supple. Right lower leg: No edema. Left lower leg: No edema. Neurological: Mental Status: She is alert. Assessment/Plan Problem List Items Addressed This Visit COPD (chronic obstructive pulmonary disease) (HCC) Relevant Medications Qdssrwbgioe-Emmwmjdvf-Gtmigh (Trelegy Ellipta) 100-62.5-25 MCG/ACT aerosol powder Disc degeneration, lumbar Relevant Medications HYDROcodone-acetaminophen ([place]) 5-325 MG tablet lidocaine (Lidoderm) 5 % patch Dyslipidemia Relevant Medications simvastatin (Zocor) 20 MG tablet GERD without esophagitis Relevant Medications omeprazole (PriLOSEC) [address] capsule Chronic right shoulder pain - Primary Likely OA and check x-ray. Treat with prednisone and start PT. If no improvement will refer to ortho. Relevant Medications predniSONE (Deltasone) 50 MG tablet Other Relevant Orders XR shoulder 2+ views right Wright's cyst of knee, left Chronic pain of left knee Likely OA and check x-ray. Treat with prednisone and start PT. If no improvement will refer to ortho. Relevant Orders XR knee 1 or 2 views left Other Visit Diagnoses Other pulmonary embolism without acute cor pulmonale (HCC) Relevant Medications rivaroxaban (Xarelto) 20 MG tablet documented in this encounter [facility] 01-13-2025 History of Presen t illness Narrative Associated Problem(s): Secondary pulmonary arterial hypertension (CMS/HCC) Follow with pulmonology. Associated Problem(s): Medicare annual wellness visit, subsequent Reviewed labs. Discussed proper diet and regular aerobic exercise. Need aerobic exercise 5-6 days a week for 30 minutes at a time. Smaller portions and limit total calories. Tetanus every 10 years. Advised not to smoke. Images from the original note were not included. Subjective Patient ID: Vane Anaya is a 74 y.o. female who presents for Medicare Annual Wellness Visit Subsequent (wellness). Presents for medicare annual wellness visit. Patient feels well today. Weight unchanged over the past year. Tries to stay active around house but no regular exercise. Tries to watch diet and eat healthy. Increased fruits and vegetables. Smaller portions and limits snacking. Tries to limit total daily calories. Reviewed labs from April. Review of Systems Respiratory: Negative for cough, shortness of breath and wheezing. Cardiovascular: Negative for chest pain and palpitations. Gastrointestinal: Negative for abdominal pain, diarrhea, nausea and vomiting. Genitourinary: Negative for dysuria. Objective Physical Exam Constitutional: General: She is not in acute distress. Appearance: Normal appearance. HENT: Head: Normocephalic. Right Ear: Tympanic membrane normal. Left Ear: Tympanic membrane normal. Eyes: Extraocular Movements: Extraocular movements intact. Pupils: Pupils are equal, round, and reactive to light. Cardiovascular: Rate and Rhythm: Normal rate and regular rhythm. Heart sounds: No murmur heard. No friction rub. No gallop. Pulmonary: Effort: Pulmonary effort is normal. Breath sounds: Normal breath sounds. No wheezing, rhonchi or rales. Abdominal: General: Bowel sounds are normal. There is no distension. Palpations: Abdomen is soft. Tenderness: There is no abdominal tenderness. There is no guarding or rebound. Musculoskeletal: Cervical back: Neck supple. Right lower leg: No edema. Left lower leg: No edema. Neurological: Mental Status: She is alert. Assessment/Plan Problem List Items Addressed This Visit COPD (chronic obstructive pulmonary disease) ([facility]) Relevant Medications azithromycin (Zithromax) 250 MG tablet DDD (degenerative disc disease), cervical Relevant Medications predniSONE (Deltasone) 50 MG tablet Medicare annual wellness visit, subsequent - Primary Reviewed labs. Discussed proper diet and regular aerobic exercise. Need aerobic exercise 5-6 days a week for 30 minutes at a time. Smaller portions and limit total calories. Tetanus every 10 years. Advised not to smoke. documented in this encounter [facility] 11-08-2024 Telephone encount er Note FYI-- Pt received a call from [employer] and the medication you ordered is $700 a month, Ohtuvayre- soulation, she states this is also listed in her letter. Enfiensifentrine- Patient cannot afford this medication and just wants you to know. Information in her letters listed [employer] to assist her with coverage. She did call the number one day last week but has not heard from them. [phone] IF YOU have any questions, Vane would appreciate a call. [facility] 11-08-2024 Miscellaneous Notes Formattin g of this note might be different from the original. FYI-- Pt received a call from [facility] and the medication you ordered is $700 a month, Kain mendoza, she states this is also listed in her letter. Enfiensifentrine- Patient cannot afford this medication and just wants you to know. Information in her letters listed [employer] to assist her with coverage. She did call the number one day last week but has not heard from them. [phone] IF YOU have any questions, Vane would appreciate a call. documented in this encounter [facility] 10-16-2024 History of Presen t illness Narrative Associated Problem(s): Seasonal allergic rhinitis due to pollen Symptoms controlled with medication and continue. Associated Problem(s): GERD without esophagitis Symptoms controlled with omeprazole and continue. Associated Problem(s): Essential hypertension, benign (CMS/HCC) BP controlled and monitor PRN. Associated Problem(s): Disc degeneration, lumbar Mild pain and use norco PRN. Try to increase activity. Associated Problem(s): COPD (chronic obstructive pulmonary disease) ([facility]) SOB unchanged and follow with pulmonology Images from the original note were not included. Subjective Patient ID: Vane Anaya is a 74 y.o. female who presents for Follow-up (6m ). Follow up HTN, COPD, back pain, GERD, and allergies. Patient stable today. Not checking BP away from office but typically controlled. BP okay today. Taking medication daily and tolerating without side effects. COPD stable with inhalers. Mild SOB and fatigue with exertion. Occasional cough and sputum. Using albuterol PRN and helps when needed. Following with pulmonology. Pain stable. Mild pain in low back and across top hips. No radiation into gluteal region or down legs. Pain increased with walking and standing. Mild pain in base neck and top shoulders. Pain worse with activity. Using norco PRN and helps when needed. GERD controlled with omeprazole. Denies epigastric pain or burning and not waking up with symptoms. Allergies controlled with medication. No congestion or rhinorrhea. No MEADOWS or sinus pressure. Ears not plugged or popping. Review of Systems Respiratory: Negative for cough, shortness of breath and wheezing. Cardiovascular: Negative for chest pain and palpitations. Gastrointestinal: Negative for abdominal pain, diarrhea, nausea and vomiting. Genitourinary: Negative for dysuria. Objective Physical Exam Constitutional: General: She is not in acute distress. Appearance: Normal appearance. HENT: Head: Normocephalic. Right Ear: Tympanic membrane normal. Left Ear: Tympanic membrane normal. Eyes: Extraocular Movements: Extraocular movements intact. Pupils: Pupils are equal, round, and reactive to light. Cardiovascular: Rate and Rhythm: Normal rate and regular rhythm. Heart sounds: No murmur heard. No friction rub. No gallop. Pulmonary: Effort: Pulmonary effort is normal. Breath sounds: Normal breath sounds. No wheezing, rhonchi or rales. Abdominal: General: Bowel sounds are normal. There is no distension. Palpations: Abdomen is soft. Tenderness: There is no abdominal tenderness. There is no guarding or rebound. Musculoskeletal: Cervical back: Neck supple. Right lower leg: No edema. Left lower leg: No edema. Neurological: Mental Status: She is alert. Assessment/Plan Problem List Items Addressed This Visit Essential hypertension, benign (CMS/HCC) - Primary BP controlled and monitor PRN. COPD (chronic obstructive pulmonary disease) (CMS/HCC) SOB unchanged and follow with pulmonology Relevant Medications Gteyngpaovj-Rkoqluiqz-Rjaigq (Trelegy Ellipta) 100-62.5-25 MCG/ACT aerosol powder Disc degeneration, lumbar Mild pain and use norco PRN. Try to increase activity. Relevant Medications HYDROcodone-acetaminophen ([place]) 5-325 MG tablet GERD without esophagitis Symptoms controlled with omeprazole and continue. Seasonal allergic rhinitis due to pollen Symptoms controlled with medication and continue. Relevant Medications montelukast (Singulair) 10 MG tablet documented in this encounter [facility] 10-11-2024 History of Presen t illness Narrative Images from the original note were not included. Vane Anaya presents today for COPD. She is accompanied by family at today's office visit. She does have a known prior history of COPD for many years. 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 She is here to establish care. She currently is using Trelegy once daily. She has been on this for many years. She does use DuoNebs on as needed basis for her rescue. She states her last exacerbation was approximately 2 months ago. She states she does have about 1 flare-up a year. However she has also noted some increasing shortness of breath and wheeze recently. She had previously been tried on Breztri, but states that she had to stop this medication because her wheezing got worse and this was of no benefit. She had also been tried on Zithromax on a daily basis, but states she had diarrhea for a month and had to stop this medication. She does notice worsening of her breathing when it is cold outside. She denies any current complaints of chest pain, palpitations, fevers, chills, sweats, or recent unintentional weight changes. She denies any other complaints this time. Allergies Allergen Reactions Ciprofloxacin Shortness of breath Metronidazole Rash Ondansetron GI intolerance Vomiting Penicillin G Sodium Hives Penicillins Hives Current Outpatient Medications Medication Sig Dispense Refill fluticasone (Flonase) 50 MCG/ACT nasal spray Administer 2 sprays into each nostril in the morning. Ppiymmnauzq-Kaxjufqwy-Bbldne (Trelegy Ellipta) 100-62.5-25 MCG/ACT aerosol powder Inhale 1 Dose Daily 28 each 5 hydroCHLOROthiazide (HYDRODiuril) 25 MG tablet TAKE 1 TABLET BY MOUTH EVERY DAY 90 tablet 3 HYDROcodone-acetaminophen ([place]) 5-325 MG tablet Take 1 tablet by mouth every 6 (six) hours if needed ipratropium-albuterol (Duo-Neb) 0.5-2.5 mg/3 mL nebulizer solution Take 3 mL by nebulization in the morning and 3 mL at noon and 3 mL in the evening and 3 mL before bedtime. latanoprost (Xalatan) 0.005 % ophthalmic solution Administer 1 drop into both eyes at bedtime montelukast (Singulair) 10 MG tablet Take 1 tablet by mouth at bedtime omeprazole (PriLOSEC) [address] capsule TAKE 1 CAPSULE BY MOUTH TWICE A DAY 180 capsule 5 ondansetron ODT (Zofran-ODT) 4 MG disintegrating tablet Take 1 tablet by mouth every 6 (six) hours if needed pneumococcal conjugate 20-valent (Prevnar 20) 0.5 ML vaccine as directed Intramuscular simvastatin (Zocor) 20 MG tablet Take 1 tablet (20 mg) by mouth at bedtime 90 tablet 3 Ventolin HFA 108 (90 Base) MCG/ACT inhaler Inhale 2 puffs every 4 (four) hours if needed Xarelto 20 MG tablet TAKE 1 TABLET BY MOUTH EVERY DAY 90 tablet 4 azithromycin (Zithromax) 250 MG tablet Take 2 by mouth today then 1 daily for 4 days 6 tablet 0 predniSONE (Deltasone) 10 MG tablet Take 4 tablets (40 mg) by mouth Daily for 4 days, THEN 2 tablets (20 mg) Daily for 4 days, THEN 1 tablet (10 mg) Daily for 4 days. 28 tablet 0 No current facility-administered medications for this visit. Past Medical History: Diagnosis Date Age-related osteoporosis without current pathological fracture (CMS/HCC) Benign essential HTN (CMS/HCC) Bilateral pulmonary embolism (CMS/HCC) Pulmonary emboli x2: 2016, 2019 - Secondary to elevated factor VIII CAD (coronary artery disease) (CMS/HCC) Centrilobular emphysema (CMS/HCC) COPD, moderate (CMS/HCC) DDD (degenerative disc disease), lumbar Dyslipidemia (CMS/HCC) Elevated factor VIII level Encounter for long-term (current) use of medications Hiatal hernia with GERD History of tobacco abuse 1 PPD x 20 years, quit 2012 Intermittent claudication (CMS/HCC) 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, 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 Monitoring for long-term anticoagulant use Postmenopausal disorder Pulmonary fibrosis (CMS/HCC) CTA 02/29/2020: No mention of fibrosis ([facility]) CT 09/12/2019: No change Seasonal allergic rhinitis due to pollen Secondary pulmonary arterial hypertension (CMS/HCC) Past Surgical History: Procedure Laterality Date CATARACT EXTRACTION, BILATERAL CT ANGIOGRAM HEART CORONARY 02/29/2020 CT ANGIOGRAM TAVR 02/29/2020 CT ANGIOGRAM HEART CORONARY 09/20/2017 CT ANGIOGRAM TAVR 09/20/2017 OTHER SURGICAL HISTORY Right Carotid Artery TONSILLECTOMY TUBAL LIGATION Family History Problem Relation Name Age of Onset Hypertension Mother Heart disease Mother Ulcers Father Hypertension Brother Social History Tobacco Use Smoking status: Former Current packs/day: 0.00 Average packs/day: 1 pack/day for 30.0 years (30.0 ttl pk-yrs) Types: Cigarettes Start date: 1982 Quit date: 2012 Years since quittin.9 Smokeless tobacco: Never Substance Use Topics Alcohol use: Yes Comment: rarely BP 129/83 (BP Location: Left arm, Patient Position: Sitting) Pulse 78 Ht 5' 1 Wt 146 lb SpO2 94% BMI 27.59 kg/m Exam: Heart: regular rate Lungs: clear to auscultation bilaterally, no wheezes/rales/rhonchi, no resp distress Extremities: no edema noted, no visible rashes Neuro: alert, oriented x3 Imaging Reviewed: PFT's from July 2024 reviewed- - FVC 2.30 L ( 96 %), FEV1 1.02 L ( 55 %), ratio 44 %, no significant bronchodilator response air trapping and hyperinflation present, normal DLCO Assessment/Plan: COPD -- currently she does feel that she has having a flare-up. A course of antibiotics and prednisone were called to the pharmacy for at today's office visit. She does continue with Trelegy once daily. However she states that she feels that this medication is not working as well as it had in the past. However she later stated she may attribute this to her recent exacerbation. We discussed the addition of Ohtuvayre to her regimen. She is agreeable to trying this medication. She will continue with Trelegy once daily. She has been tried on daily Zithromax without benefit. She states she did have diarrhea for the entire month that she was taking this medication. She also was changed to Breztri, but had difficulty with his medication and did not have any improvement of symptoms. She had previously followed with Pulmonary on a once a year basis. She would like to continue with yearly follow-up unless she has worsening of her symptoms. Follow up in about 1 year (around 10/11/2025) for COPD. Susie Ewing DO documented in this encounter [facility] 07-18-2024 History of Presen t illness Narrative Associated Problem(s): Essential hypertension, benign (CMS/HCC) BP elevated today but previously controlled and monitor PRN. Associated Problem(s): COPD (chronic obstructive pulmonary disease) (CMS/HCC) Breathing stable and continue inhalers. Refer to new pulmonology. Images from the original note were not included. Subjective Patient ID: Vane Anaya is a 73 y.o. 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 Patient requests new pulmonology referral. Seen by Dr. Willis for years but reports more difficult to get appointment. Overall COPD stable. Mild SOB with exertion and notice more if carrying things or more active. Mild cough and sputum that is worse in am. Checking BP PRN and typically controlled. BP elevated today. Taking medication daily and tolerating without side effects. Review of Systems Respiratory: Negative for cough, shortness of breath and wheezing. Cardiovascular: Negative for chest pain and palpitations. Gastrointestinal: Negative for abdominal pain, diarrhea, nausea and vomiting. Genitourinary: Negative for dysuria. Objective Physical Exam Constitutional: General: She is not in acute distress. Appearance: Normal appearance. HENT: Head: Normocephalic. Right Ear: Tympanic membrane normal. Left Ear: Tympanic membrane normal. Eyes: Extraocular Movements: Extraocular movements intact. Pupils: Pupils are equal, round, and reactive to light. Cardiovascular: Rate and Rhythm: Normal rate and regular rhythm. Heart sounds: No murmur heard. No friction rub. No gallop. Pulmonary: Effort: Pulmonary effort is normal. Breath sounds: Normal breath sounds. No wheezing, rhonchi or rales. Abdominal: General: Bowel sounds are normal. There is no distension. Palpations: Abdomen is soft. Tenderness: There is no abdominal tenderness. There is no guarding or rebound. Musculoskeletal: Cervical back: Neck supple. Right lower leg: No edema. Left lower leg: No edema. Neurological: Mental Status: She is alert. Assessment/Plan Problem List Items Addressed This Visit Essential hypertension, benign (CMS/HCC) BP elevated today but previously controlled and monitor PRN. COPD (chronic obstructive pulmonary disease) (CMS/HCC) - Primary Breathing stable and continue inhalers. Refer to new pulmonology. Relevant Medications Ylrxssylkay-Araquhtcu-Kuhxqu (Trelegy Ellipta) 100-62.5-25 MCG/ACT aerosol powder Other Relevant Orders Ambulatory referral to Pulmonology Dyslipidemia (CMS/HCC) Relevant Medications simvastatin (Zocor) 20 MG tablet documented in this encounter [facility] Evaluation note Diagnosis Essential hypertension, benign (CMS/HCC)- Primary Essential hypertension, benign Chronic obstructive pulmonary disease, unspecified COPD type (CMS/HCC) DDD (degenerative disc disease), cervical Degeneration of cervical intervertebral disc Disc degeneration, lumbar Degeneration of lumbar or lumbosacral intervertebral disc GERD without esophagitis Esophageal reflux Seasonal allergic rhinitis due to pollen Essential hypertension, benign (CMS/HCC)- Primary Essential hypertension, benign DDD (degenerative disc disease), cervical Degeneration of cervical intervertebral disc Disc degeneration, lumbar Degeneration of lumbar or lumbosacral intervertebral disc Chronic obstructive pulmonary disease, unspecified COPD type (CMS/HCC) GERD without esophagitis Esophageal reflux Seasonal allergic rhinitis due to pollen Age-related osteoporosis without current pathological fracture (CMS/HCC) Prediabetes Other abnormal glucose Dyslipidemia (CMS/HCC) Other and unspecified hyperlipidemia Encounter for long-term (current) use of medications Encounter for long-term (current) use of other medications Pulmonary fibrosis, unspecified (CMS/HCC) Secondary pulmonary arterial hypertension (CMS/HCC) Peripheral vascular disease, unspecified (CMS/HCC) Peripheral vascular disease, unspecified Chronic obstructive pulmonary disease, unspecified COPD type (CMS/HCC)- Primary Essential hypertension, benign (CMS/HCC) Essential hypertension, benign Dyslipidemia (CMS/HCC) Other and unspecified hyperlipidemia Chronic obstructive pulmonary disease, unspecified COPD type (CMS/HCC) [facility]* Diagnosis Essential hypertension, benign (CMS/HCC)- Primary Essential hypertension, benign Chronic obstructive pulmonary disease, unspecified COPD type (CMS/HCC) DDD (degenerative disc disease), cervical Degeneration of cervical intervertebral disc Disc degeneration, lumbar Degeneration of lumbar or lumbosacral intervertebral disc GERD without esophagitis Esophageal reflux Seasonal allergic rhinitis due to pollen Essential hypertension, benign (CMS/HCC)- Primary Essential hypertension, benign DDD (degenerative disc disease), cervical Degeneration of cervical intervertebral disc Disc degeneration, lumbar Degeneration of lumbar or lumbosacral intervertebral disc Chronic obstructive pulmonary disease, unspecified COPD type (CMS/HCC) GERD without esophagitis Esophageal reflux Seasonal allergic rhinitis due to pollen Age-related osteoporosis without current pathological fracture (CMS/HCC) Prediabetes Other abnormal glucose Dyslipidemia (CMS/HCC) Other and unspecified hyperlipidemia Encounter for long-term (current) use of medications Encounter for long-term (current) use of other medications Pulmonary fibrosis, unspecified (CMS/HCC) Secondary pulmonary arterial hypertension (CMS/HCC) Peripheral vascular disease, unspecified (CMS/HCC) Peripheral vascular disease, unspecified Chronic obstructive pulmonary disease, unspecified COPD type (CMS/HCC)- Primary Essential hypertension, benign (CMS/HCC) Essential hypertension, benign Dyslipidemia (CMS/HCC) Other and unspecified hyperlipidemia Essential hypertension, benign (CMS/HCC)- Primary Essential hypertension, benign Chronic obstructive pulmonary disease, unspecified COPD type (CMS/HCC) Degeneration of intervertebral disc of lumbar region with discogenic back pain GERD without esophagitis Esophageal reflux Seasonal allergic rhinitis due to pollen documented [facility]* Diagnosis Chronic obstructive pulmonary disease, unspecified COPD type (CMS/HCC)- Primary Essential hypertension, benign (CMS/HCC) Essential hypertension, benign Dyslipidemia (CMS/HCC) Other and unspecified hyperlipidemia documented in this encounter [facility]* Diagnosis Essential hypertension, benign (CMS/HCC)- Primary Essential hypertension, benign Chronic obstructive pulmonary disease, unspecified COPD type (CMS/HCC) DDD (degenerative disc disease), cervical Degeneration of cervical intervertebral disc Disc degeneration, lumbar Degeneration of lumbar or lumbosacral intervertebral disc GERD without esophagitis Esophageal reflux Seasonal allergic rhinitis due to pollen Essential hypertension, benign (CMS/HCC)- Primary Essential hypertension, benign DDD (degenerative disc disease), cervical Degeneration of cervical intervertebral disc Disc degeneration, lumbar Degeneration of lumbar or lumbosacral intervertebral disc Chronic obstructive pulmonary disease, unspecified COPD type (CMS/HCC) GERD without esophagitis Esophageal reflux Seasonal allergic rhinitis due to pollen Age-related osteoporosis without current pathological fracture (CMS/HCC) Prediabetes Other abnormal glucose Dyslipidemia ([facility]/HCC) Other and unspecified hyperlipidemia Encounter for long-term (current) use of medications Encounter for long-term (current) use of other medications Pulmonary fibrosis, unspecified (CMS/HCC) Secondary pulmonary arterial hypertension (CMS/HCC) Peripheral vascular disease, unspecified (CMS/HCC) Peripheral vascular disease, unspecified Chronic obstructive pulmonary disease, unspecified COPD type (CMS/HCC)- Primary Essential hypertension, benign (CMS/HCC) Essential hypertension, benign Dyslipidemia (CMS/HCC) Other and unspecified hyperlipidemia Essential hypertension, benign (CMS/HCC)- Primary Essential hypertension, benign Chronic obstructive pulmonary disease, unspecified COPD type (CMS/HCC) Degeneration of intervertebral disc of lumbar region with discogenic back pain GERD without esophagitis Esophageal reflux Seasonal allergic rhinitis due to pollen Chronic obstructive pulmonary disease, unspecified COPD type (CMS/HCC)- Primary documented in this encounter [facility]* Diagnosis Essential hypertension, benign (CMS/HCC)- Primary Essential hypertension, benign Chronic obstructive pulmonary disease, unspecified COPD type (CMS/HCC) DDD (degenerative disc disease), cervical Degeneration of cervical intervertebral disc Disc degeneration, lumbar Degeneration of lumbar or lumbosacral intervertebral disc GERD without esophagitis Esophageal reflux Seasonal allergic rhinitis due to pollen Essential hypertension, benign (CMS/HCC)- Primary Essential hypertension, benign DDD (degenerative disc disease), cervical Degeneration of cervical intervertebral disc Disc degeneration, lumbar Degeneration of lumbar or lumbosacral intervertebral disc Chronic obstructive pulmonary disease, unspecified COPD type (CMS/HCC) GERD without esophagitis Esophageal reflux Seasonal allergic rhinitis due to pollen Age-related osteoporosis without current pathological fracture (CMS/HCC) Prediabetes Other abnormal glucose Dyslipidemia (CMS/HCC) Other and unspecified hyperlipidemia Encounter for long-term (current) use of medications Encounter for long-term (current) use of other medications Pulmonary fibrosis, unspecified (CMS/HCC) Secondary pulmonary arterial hypertension (CMS/HCC) Peripheral vascular disease, unspecified (CMS/HCC) Peripheral vascular disease, unspecified Chronic obstructive pulmonary disease, unspecified COPD type (CMS/HCC)- Primary Essential hypertension, benign (CMS/HCC) Essential hypertension, benign Dyslipidemia (CMS/HCC) Other and unspecified hyperlipidemia Essential hypertension, benign (CMS/HCC)- Primary Essential hypertension, benign Chronic obstructive pulmonary disease, unspecified COPD type (CMS/HCC) Degeneration of intervertebral disc of lumbar region with discogenic back pain GERD without esophagitis Esophageal reflux Seasonal allergic rhinitis due to pollen Medicare annual wellness visit, subsequent- Primary DDD (degenerative disc disease), cervical Degeneration of cervical intervertebral disc Chronic obstructive pulmonary disease, unspecified COPD type (CMS/HCC) Secondary pulmonary arterial hypertension (CMS/HCC) documented [facility]* Diagnosis Essential hypertension, benign- Primary Essential hypertension, benign Chronic obstructive pulmonary disease, unspecified COPD type (HCC) DDD (degenerative disc disease), cervical Degeneration of cervical intervertebral disc Disc degeneration, lumbar Degeneration of lumbar or lumbosacral intervertebral disc GERD without esophagitis Esophageal reflux Seasonal allergic rhinitis due to pollen Essential hypertension, benign- Primary Essential hypertension, benign DDD (degenerative disc disease), cervical Degeneration of cervical intervertebral disc Disc degeneration, lumbar Degeneration of lumbar or lumbosacral intervertebral disc Chronic obstructive pulmonary disease, unspecified COPD type (HCC) GERD without esophagitis Esophageal reflux Seasonal allergic rhinitis due to pollen Age-related osteoporosis without current pathological fracture Prediabetes Other abnormal glucose Dyslipidemia Other and unspecified hyperlipidemia Encounter for long-term (current) use of medications Encounter for long-term (current) use of other medications Pulmonary fibrosis, unspecified (HCC) Secondary pulmonary arterial hypertension (HCC) Peripheral vascular disease, unspecified Chronic obstructive pulmonary disease, unspecified COPD type (HCC)- Primary Essential hypertension, benign Essential hypertension, benign Dyslipidemia Other and unspecified hyperlipidemia Essential hypertension, benign- Primary Essential hypertension, benign Chronic obstructive pulmonary disease, unspecified COPD type (HCC) Degeneration of intervertebral disc of lumbar region with discogenic back pain GERD without esophagitis Esophageal reflux Seasonal allergic rhinitis due to pollen Medicare annual wellness visit, subsequent- Primary DDD (degenerative disc disease), cervical Degeneration of cervical intervertebral disc Chronic obstructive pulmonary disease, unspecified COPD type (HCC) Secondary pulmonary arterial hypertension (HCC) Chronic right shoulder pain- Primary Pain in joint, shoulder region Wright's cyst of knee, left Chronic pain of left knee Other pulmonary embolism without acute cor pulmonale (HCC) Dyslipidemia Other and unspecified hyperlipidemia GERD without esophagitis Esophageal reflux Chronic obstructive pulmonary disease, unspecified COPD type (HCC) Degeneration of intervertebral disc of lumbar region with discogenic back pain [facility] Consultation (Routine) - Pending Review Specialty Diagnoses / Procedures Referred By Felipe escobar Referred To Contact Pulmonary Disease / Pulmonology Diagnoses Chronic obstructive pulmonary disease, unspecified COPD type (CMS/HCC) Procedures ID OFFICE/OUTPATIENT [facility] 60 MINUTES Magnus Vora MD [address] [place] [address] Susie Ewing, [address] [place] [address] Referral ID Status Reason Start Date Expiration Date Visits Requested Visits Authorized [id number] Pending Review Specialty Services Required 07/18/2024 01/14/2025 1 1 [facility] Summary Purpose Family History No Family History Records FoundNo Family History Records FoundNo Family History Records Found Advance Directives No Advanced Directives Records FoundNo Advanced Directives Records FoundNo Advanced Directives Records Found Additional Source Comments INFORMATION SOURCE (unrecogn ized section and content) DATE CREATED AUTHOR 04/07/2023 [facility] DATE CREATED AUTHOR AUTHOR'S ORGANIZ ATION 06/04/2024 [facility] DATE CREATED AUTHOR AUTHOR'S ORGANIZ ATION 01/15/2025 [facility] Care Teams (unrecognized sec tion and content) 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[employer] Relationship Specialty Start Date End Date Magnus Vora MD [address] [place] [phone] PCP - [facility] 04/24/24 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Biology Relationship Specialty Start Date End Date Magnus Vora MD [address] [place] [phone] PCP - [facility] 04/24/24 Magnus Vora MD [address] [place] [address] PCP - [facility] 06/30/24 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[employer] Relationship Specialty Start Date End Date Magnus Vora MD [address] [place] [address] PCP - [facility] 04/24/24 Magnus Vora MD [address] [place] [address] PCP - Eli[facility] SONG 06/30/24 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[employer] Relationship Specialty Start Date End Date Magnus Vora MD [address] [place] [phone] PCP - [facility] 04/24/24 Magnus Vora MD [address] [place] [address] PCP - Elijah SONG 06/30/24 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[employer] Relationship Specialty Start Date End Date Magnus Vora MD [address] [place] [phone] PCP - General Family Medicine 04/24/24 Magnus Vora MD [address] [place] [address] PCP - Elijah SONG 06/30/24 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[employer] Relationship Specialty Start Date End Date Magnus Vora MD [address] [place] [address] PCP - General Family Medicine 04/24/24 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 Relationship Specialty Start Date End Date Magnus Vora MD [address] [place] [address] PCP - General Family Medicine 04/24/24 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 Relationship Specialty Start Date End Date Magnus Vora MD [address] [place] [address] PCP - General Family Medicine 04/24/24 Magnus Vora MD [address] [place] [address] PCP - Elijah SONG 06/30/24 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[employer] Relationship Specialty Start Date End Date Magnus Vora MD [address] [place] [address] PCP - General Family Medicine 04/24/24 Chelly Clements MA Family Medicine 11/13/24 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[employer] Relationship Specialty Start Date End Date Magnus Vora MD [address] [place] [address] PCP - General Family Medicine 04/24/24 Chelly Clements MA Family Medicine 11/13/24 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[employer] Relationship Specialty Start Date End Date Magnus Vora MD [address] [place] [address] PCP - General Family Medicine 04/24/24 Chelly Clements MA Family Medicine 11/13/24 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[employer] Relationship Specialty Start Date End Date Magnus Vora MD [address] [place] [phone] PCP - General Family Medicine 04/24/24 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[employer] Relationship Specialty Start Date End Date Magnus Vora MD [address] [place] [phone] PCP - General Family Medicine 04/24/24 Reason for Visit (unrecogniz ed section and content) Reason Comments COPD Consultation Specialty Diagnoses / Procedures Referred By Contac t Referred To Contact Pulmonary Disease / Pulmonology Diagnoses Chronic obstructive pulmonary disease, unspecified COPD type ([facility]) Procedures ID OFFICE/OUTPATIENT NEW HIGH MDM 60 MINUTES Magnus Vora MD [address] [place] [address] Phone: tel: fax: Susie Ewing, DO [address] [place] [address] Phone: tel: fax: Referral ID Status Reason Start Date Expiration Date V isits Requested Visits Authorized [id number] Closed Specialty Services Required 07/18/2024 01/14/2025 1 1 Reason Comments Follow-up 6m Reason Comments Follow-up Referral to new pulm onologist Reason Onset Date Comments Med Refill 12/13/2024 Reason Comments Medicare Annual Wellness Visit Subsequen t wellness Reason Comments Follow-up Right arm painCyst b ehind knee FOR RECORDS PERTAINING TO PATIENTS WHO ARE OR HAVE BEEN ENROLLED IN A CHEMICAL DEPENDENCY/SUBSTANCEABUSE PROGRAM, SOME INFORMATION MAY BE OMITTED. This clinical summary was aggregated from multiple sources. Caution should be exercised in using it in the provision of clinical care. This summary normalizes information from multiple sources, and as a consequence, information in this document may materially change the coding, format and clinical context of patient data. In addition, data may be omitted in some cases. CLINICAL DECISIONS SHOULD BE BASED ON THE PRIMARY CLINICAL RECORDS. [facility] [employer] [facility]. provides no warranty or guarantee of the accuracy or completeness of information in this document.
== END 2025-05-19 10:14 | disposition home or self-care (01) ==
LOC: RAD 10:15
PROVIDERS: PCP Family Medicine; Visit Provider Family Medicine
DX: M25.562 Pain in left knee (principal); G89.29 Other chronic pain; M25.511 Pain in right shoulder
CPT/HCPCS: 73030; 73560